=== PATIENT | female | born 1955 | race Caucasian/White ===

== ENCOUNTER 2019-12-30 01:35 | Outpatient (CLI) | payer OTHER, SELFPAY ==
[2019-12-30 18:04] LABS: SARS-CoV-2 RNA PCR Negative
== END 2019-12-30 01:36 | disposition home or self-care (01) ==
LOC: ANHCOVIDDT 01:35
PROVIDERS: PCP Internal Medicine; Visit Provider Internal Medicine Gastroenterology
DX: Z01.812 Encounter for preprocedural laboratory examination (principal); Z20.828 Contact with and (suspected) exposure to other viral communicable diseases
CPT/HCPCS: 87635; C9803; U0003

== ENCOUNTER 2020-01-03 01:30 | Day surgery (SDC) | payer OTHER, SELFPAY ==
[2019-12-27 14:43] VITALS: BMI 51.5
[2020-01-03 06:34] VITALS: BP 156/84; PULSE 85; RESP 17; TEMP 36.5; O2SAT 95; BMI 51.3
[2020-01-03] MEDS: LACTATED RINGERS 1,000 ML 150 ML IV CONT (06:44)
--- NOTE | 2020-01-03 07:04 | WPDANESEPPF ---
Anes - Initial Pre Proc Eval Procedure: Operation Date: 01/03/20 07:30 Proposed Procedures p Colonoscopy - Justin Pineda MD Date/Time: 01/03/20 07:04 Surgeon: Justin Pineda MD Pre Op Diagnosis: Occult GI bleeding Patient Data Age: 64 Gender: F Height: 5 ft 4 in Weight: 135.7 kg Last Vital Signs Temp 36.5 C 01/03/20 06:34 Pulse 85 01/03/20 06:34 Resp 17 01/03/20 06:34 BP 156/84 H 01/03/20 06:34 Pulse Ox 95 01/03/20 06:34 Allergies Allergy/AdvReac Type Severity Reaction Status Date / Time sulfamethizole Allergy Severe Itching Verified 01/03/20 06:29 sulfamethoxazole Allergy Severe Itching Verified 01/03/20 06:29 bacitracin Allergy Intermediate Redness of Verified 01/03/20 06:29 Skin polymyxin B Allergy Intermediate Redness of Verified 01/03/20 06:29 Skin trimethoprim Allergy Intermediate Unknown Verified 01/03/20 06:29 gramicidin D Allergy Mild RED/INFLAMM Verified 01/03/20 06:29 ED diclofenac AdvReac Intermediate Unknown Verified 01/03/20 06:29 BACITRACIN ZINC Allergy Mild RED/INFLAMM Uncoded 01/03/20 06:29 ED NEOMYCIN SULFATE Allergy Mild RED/INFLAMM Uncoded 01/03/20 06:29 ED POLYMYXIN B SULFATE Allergy Mild RED/INFLAMM Uncoded 01/03/20 06:29 ED Home Medications Medication Instructions Recorded Confirmed Type fluticasone propionate 50 1 spray NASAL DAILY #18.2 ml 04/12/19 01/03/20 Rx mcg/actuation nasal spray,suspension buprenorphine 8 mg-naloxone 2 mg 2 tablet SUBLINGUAL DAILY tablet 07/06/19 01/03/20 History sublingual tablet hydroxychloroquine 200 mg tablet 400 mg PO BID tablet 07/06/19 01/03/20 History leflunomide 20 mg tablet 20 mg PO DAILY tablet 07/06/19 01/03/20 History sulfasalazine 500 mg 0.5 gm PO BID tablet 07/06/19 01/03/20 History tablet,delayed release adalimumab 40 mg/0.8 mL 40 mg SUB-Q .q other week each 07/25/19 01/03/20 History subcutaneous syringe kit Synthroid 150 mcg tablet 150 mcg PO DAILY #90 tablet NS 10/16/19 01/03/20 Rx celecoxib 200 mg capsule 200 mg PO DAILY #90 cap 10/16/19 01/03/20 Rx gabapentin 300 mg capsule 300 mg PO BID 10/17/19 01/03/20 History amlodipine [Norvasc] 10 mg PO DAILY 12/27/19 01/03/20 History furosemide [Lasix] 40 mg PO QAM 12/27/19 01/03/20 History montelukast [Singulair] 10 mg PO DAILY 12/27/19 01/03/20 History valsartan-hydrochlorothiazide 1 tablet PO DAILY 12/27/19 01/03/20 History [Diovan HCT] Patient hx anesthesia problems: none Family hx anesthesia problems: none PMFSH Past Medical History Medical History Arthritis Arthritis of foot, degenerative Callus of foot Eye exam normal Flatfoot Hypertension Opioid dependence on agonist therapy Osteoporosis Skin cancer Spinal stenosis of lumbar region Vision abnormalities Surgical History Surgical History History of hip replacement Family History Family History Father Family history of osteoarthritis Family history of coronary artery disease Mother Familial primary pulmonary hypertension Family history of elevated blood lipids Other Diabetes mellitus Family history of arthritis Family history of cardiovascular disease Family history of gout Family history of malignant neoplasm of skin Hypertension Social History Social History Smoking packs per day: 0.5 Smoking cigarettes per day: 10.0 Years smoked: 40 Smoking pack-years: 20.00 Smoking status: Current every day smoker Tobacco type: cigarettes Second hand tobacco smoke exposure: No Alcohol intake: current Substance use type: does not use Living arrangements: with family Gender identity (if verbalized by the patient): Female Spiritual care concerns: No Anes - Eval Final PreProcedure Day of P
--- NOTE | 2020-01-03 07:42 | WPDGICN ---
Assessment and Plan Assessment and plan (1) Occult blood in stools: Code(s): R19.5 - Other fecal abnormalities Status: Acute Assessment and Plan: Occult blood noted in stool on routine screening exam plan is for screening colonoscopy to assess more thoroughly. Further recommendations will be given after endoscopy. (2) Class 3 severe obesity with serious comorbidity and body mass index (BMI) of 50.0 to 59.9 in adult: Code(s): E66.01 - Morbid (severe) obesity due to excess calories; Z68.43 - Body mass index [BMI] 50.0-59.9, adult Status: Acute GI Consult Note Consult date/time: 01/03/20 07:42 HPI: Shara Kerr is a 64 year old female Seen in evaluation at the request of Dr Grzegorz Girard. patient recently was found to have positive Hemoccult in a stool sample. Patient states her bowel habits are normal and regular. She denies abdominal pain. She has had no visible bleeding. Review of Systems Review of Systems: All systems reviewed & are unremarkable except as noted in HPI and below PMFSH Past Medical History Medical History Arthritis Arthritis of foot, degenerative Callus of foot Eye exam normal Flatfoot Hypertension Opioid dependence on agonist therapy Osteoporosis Skin cancer Spinal stenosis of lumbar region Vision abnormalities Surgical History Surgical History History of hip replacement Family History Family History Father Family history of osteoarthritis Family history of coronary artery disease Mother Familial primary pulmonary hypertension Family history of elevated blood lipids Other Diabetes mellitus Family history of arthritis Family history of cardiovascular disease Family history of gout Family history of malignant neoplasm of skin Hypertension Social History Social History Smoking packs per day: 0.5 Smoking cigarettes per day: 10.0 Years smoked: 40 Smoking pack-years: 20.00 Smoking status: Current every day smoker Tobacco type: cigarettes Second hand tobacco smoke exposure: No Alcohol intake: current Substance use type: does not use Living arrangements: with family Gender identity (if verbalized by the patient): Female Spiritual care concerns: No Meds Home Medications and Allergies Home Medications Medication Instructions Recorded Confirmed Type fluticasone propionate 50 1 spray NASAL DAILY #18.2 ml 04/12/19 01/03/20 Rx mcg/actuation nasal spray,suspension buprenorphine 8 mg-naloxone 2 mg 2 tablet SUBLINGUAL DAILY tablet 07/06/19 01/03/20 History sublingual tablet hydroxychloroquine 200 mg tablet 400 mg PO BID tablet 07/06/19 01/03/20 History leflunomide 20 mg tablet 20 mg PO DAILY tablet 07/06/19 01/03/20 History sulfasalazine 500 mg 0.5 gm PO BID tablet 07/06/19 01/03/20 History tablet,delayed release adalimumab 40 mg/0.8 mL 40 mg SUB-Q .q other week each 07/25/19 01/03/20 History subcutaneous syringe kit Synthroid 150 mcg tablet 150 mcg PO DAILY #90 tablet NS 10/16/19 01/03/20 Rx celecoxib 200 mg capsule 200 mg PO DAILY #90 cap 10/16/19 01/03/20 Rx gabapentin 300 mg capsule 300 mg PO BID 10/17/19 01/03/20 History amlodipine [Norvasc] 10 mg PO DAILY 12/27/19 01/03/20 History furosemide [Lasix] 40 mg PO QAM 12/27/19 01/03/20 History montelukast [Singulair] 10 mg PO DAILY 12/27/19 01/03/20 History valsartan-hydrochlorothiazide 1 tablet PO DAILY 12/27/19 01/03/20 History [Diovan HCT] Allergies Allergy/AdvReac Type Severity Reaction Status Date / Time sulfamethizole Allergy Severe Itching Verified 01/03/20 06:29 sulfamethoxazole Allergy Severe Itching Verified 01/03/20 06:29 bacitracin Allergy Intermediate Redness of Verified 01/03/20 06:29 Skin p
[2020-01-03 08:03] VITALS: BP 108/52; PULSE 77; RESP 16; O2SAT 95
[2020-01-03 08:13] VITALS: BP 94/54; PULSE 90; RESP 16; O2SAT 94
[2020-01-03 08:23] VITALS: BP 128/89; PULSE 85; RESP 21; O2SAT 97
== END 2020-01-03 08:38 | disposition home or self-care (01) ==
PROVIDERS: PCP Internal Medicine; Visit Provider Internal Medicine Gastroenterology
PROC: 0DJD8ZZ Inspection of Lower Intestinal Tract, Via Natural or Artificial Opening Endoscopic (ICD-10-PCS; CPT 45378; principal; 2020-01-03 07:30)
DX: R19.5 Other fecal abnormalities (principal); K64.8 Other hemorrhoids; E66.01 Morbid (severe) obesity due to excess calories; I10 Essential (primary) hypertension; M81.0 Age-related osteoporosis without current pathological fracture; M48.061 Spinal stenosis, lumbar region without neurogenic claudication; M19.079 Primary osteoarthritis, unspecified ankle and foot; M21.40 Flat foot [pes planus] (acquired), unspecified foot; H53.9 Unspecified visual disturbance; L84 Corns and callosities; F11.20 Opioid dependence, uncomplicated; F17.210 Nicotine dependence, cigarettes, uncomplicated; Z96.649 Presence of unspecified artificial hip joint
CPT/HCPCS: 45378; J2001; J2704; J7120

== ENCOUNTER 2020-05-03 11:35 | Outpatient (CLI) | payer OTHER, MEDICARE, SELFPAY | END 2020-05-03 11:36 | disposition home or self-care (01) | LOC: ANHCOVIDVC 11:35 | PROVIDERS: PCP Internal Medicine | DX: Z23 Encounter for immunization (principal) | CPT/HCPCS: 0001A; 91300 ==

== ENCOUNTER 2020-05-24 11:26 | Outpatient (CLI) | payer OTHER, MEDICARE, SELFPAY | END 2020-05-24 11:27 | disposition home or self-care (01) | LOC: ANHCOVIDVC 11:26 | PROVIDERS: PCP Internal Medicine | DX: Z23 Encounter for immunization (principal) | CPT/HCPCS: 0002A; 91300 ==

== ENCOUNTER 2020-11-21 12:03 | Outpatient (CLI) | payer OTHER, SELFPAY ==
--- NOTE | ~2020-11-21 | XR_ITS ---
EXAMINATION: XR lg joint inject/asp w image, XR lg joint inject/asp add DATE: 11/21/2020 13:54 INDICATION: Primary osteoarthritis of the bilateral shoulders presenting with pain TECHNIQUE: A time-out was performed to verify the patient's name, date of , and procedure to b e performed. The procedure including the risks, benefits, and alternatives was discussed with the pat ient. Risks discussed included bleeding and allergic reaction and infection. The patient understood t he risks and agreed to proceed. Attention was first turned to the right shoulder. The skin overlying the right glenohumeral joint was prepped and draped in usual sterile fashion. Anesthetic was adminis tered with 1% lidocaine subcutaneously. A 22 G needle was advanced under fluoroscopic guidance into the joint. Injection of 1 mL of Omnipaque 240 confirmed intra-articular position of the needle. Sub sequently, injectate consisting of 3.5 mL of a 4:3 mixture of 1% lidocaine: 10 mg/mL Kenalog for a to mihaela dosage of 15 mg Kenalog was instilled. Washout of contrast was seen confirming intra-articular ad ministration. The needle was removed and the entry site was cleaned and dressed. Attention was then turned to the left glenohumeral joint. The skin overlying the left glenohumeral bryan int was prepped and draped in usual sterile fashion. Anesthetic was administered with 1% lidocaine caputo bcutaneously. A 22 G needle was advanced under fluoroscopic guidance into the joint. Injection of 1 mL of Omnipaque 240 confirmed intra-articular position of the needle. Subsequently, injectate consi sting of 3.5 mL of a 4:3 mixture of 1% lidocaine: 10 mg/mL Kenalog for a total dosage of 15 mg Kenalo g was instilled. Washout of contrast was seen confirming intra-articular administration. The needle w as removed and the entry site was cleaned and dressed. There were no immediate complications. Fluoros copy exposure time for both procedures was 0.4 minutes. The total number of images was 3. Total DAP w as 6.172 mGycm^2 FINDINGS: Real-time fluoroscopy demonstrates the needle and contrast first in the right glenohumeral joint and subsequently a second needle and contrast in the left glenohumeral joint. Patient's pain in the left shoulder prior to procedure:10/01 and following the procedure: 06/01. Patient's pain in the l eft shoulder prior to procedure:06/01 and following the procedure: 04/03. IMPRESSION: 1. Successful left and right shoulder joint injections of local anesthetic and steroid with decrease in the patient's presenting pain. Reviewed, dictated and finalized at location A. IMPRESSION: 1. Successful left and right shoulder joint injections of local anesthetic and steroid with decrease in the patient's presenting pain.
== END 2020-11-21 12:04 | disposition home or self-care (01) ==
PROVIDERS: PCP Family Medicine; Visit Provider Orthopaedic Surgery
DX: M19.011 Primary osteoarthritis, right shoulder (principal); M19.012 Primary osteoarthritis, left shoulder
CPT/HCPCS: 20610; 77002; J3301; Q9966

== ENCOUNTER 2021-01-01 06:59 | Emergency (ER) | payer OTHER, SELFPAY ==
[2021-01-01 07:25] VITALS: BP 187/89; PULSE 100; RESP 18; TEMP 36.8; O2SAT 100
[2021-01-01 07:37] VITALS: BP 187/89; PULSE 100; RESP 18; TEMP 36.8; O2SAT 100
[2021-01-01 08:03] LABS: Basophils Absolute Auto 0.1 K/mm3 (0.0-0.1); Basophils Percent Auto 0.8 % (0.2-1.2); Eosinophils Absolute Auto 0.1 K/mm3 (0-0.3); Eosinophils Percent Auto 0.8 % (0-4.4); Hematocrit 44.5 % (37.0-47.0); Hemoglobin 14.5 g/dL (12.0-15.0); Immature Granulocyte Absolute 0.02 K/mm3 (0.00-0.031); Immature Granulocyte Percent A 0.3 % (0-0.5); Lymphocytes Absolute Auto 1.09 K/mm3 (0.9-3.2); Lymphocytes Percent Auto 16.5 % (18.3-44.2); Mean Corpuscular HGB Conc 32.6 g/dl (32-36); Mean Corpuscular Hemoglobin 31.8 pg (26-34); Mean Corpuscular Volume 97.6 fl (80-100); Mean Platelet Volume 9.4 fl (7.4-10.4); Monocytes Absolute Auto 0.6 K/mm3 (0.1-0.6); Monocytes Percent Auto 8.8 % (2.6-8.5); Neutrophils Absolute Auto 4.8 K/mm3 (1.3-6.7); Neutrophils Percent Auto 72.8 % (45.5-73.1); Platelet Count Result 229 k/mm3 (150-375); Red Blood Count 4.56 M/mm3 (4.2-5.4); Red Cell Distribution Width 13.7 % (11.5-14.5); White Blood Count 6.6 K/mm3 (4.5-10.0)
[2021-01-01 08:14] LABS: Sodium 139 mmol/L (137-145)
--- NOTE | 2021-01-01 08:18 | PC.NURSE ---
Pt states she has taken tylenol and iburprofen before with no issues, spoke with pharmacy [facility] and verified will monitor pt for reaction
[2021-01-01 08:25] LABS: Alanine Aminotransferase 31 U/L (4-35); Albumin Level 4.7 g/dL (3.5-5.1); Alkaline Phosphatase 80 U/L (38-126); Anion Gap 10 mmol/L (8-16); Aspartate Amino Transferase 28 U/L (14-36); Bilirubin,Total 0.5 mg/dL (0.2-1.3); Blood Urea Nitrogen 17 mg/dL (7-17); Calcium 9.7 mg/dL (8.4-10.2); Carbon Dioxide 31 mmol/L (22-30); Chloride 98 mmol/L (98-107); Estimated CRCL calculation 100 ml/min; Estimated Glomerular Filt Rate > 60; Glucose 132 mg/dL (65-110); Potassium 3.9 mmol/L (3.4-5.0)
[2021-01-01] MEDS: SODIUM CHLORIDE 0.9% IV 1,000 ML 999 ML IV CONT (08:41)
[2021-01-01] MEDS: KETOROLAC 15 MG/ML VIAL (*BKC) IV PUSH (08:41)
[2021-01-01] MEDS: HYDROmorphone HCL INJ (*CRX) 1 MG/ML SYR IV PUSH ×2 (09:38→11:19)
[2021-01-01 09:47] LABS: Erythrocyte Sedimentation Rate 16 mm/hr (0-20)
[2021-01-01 10:27] LABS: Add Urine Microscopic? YES; Appearance Urine Clear (Clear); Bacteria Urine Trace /hpf; Bilirubin Urine Negative (Negative); Blood Urine 1+ (Negative); Color Urine Yellow (Yellow); Glucose Urine UA Negative (Negative); Ketones Urine Negative (Negative); Leukocyte Esterase Ur Negative LEU/UL (Negative); Mucus Urine Rare /lpf; Nitrate Urine Negative (Negative); Protein Urine Negative (Negative); RBC Urine 0-2 /hpf (0-2); Specific Grav Ur 1.009 (1.001-1.035); Squamous Epithelial Cell Urine Few /hpf (Few); Urobilinogen Urine Negative mg/dL (<2.0); WBC Urine 0-3 /hpf
--- NOTE | 2021-01-01 10:32 | ED.BACK ---
HPI - Back Pain/Injury General Chief Complaint: Back Pain/Injury Stated Complaint: low back nerve pain Time Seen by Provider: 01/01/21 07:25 Source: patient History of Present Illness HPI Narrative: Patient presents with low back pain. Patient reports a history of chronic low back pain and had a CT myelogram performed on Wednesday since then she had an increase in her low back pain. Pain is achy, constant, nothing makes it worse, no radiation. She talked to her providers who did the procedure recommended monitoring her symptoms she did but her pain persisted. She called her regular doctor on Wednesday as well as her spine surgeon and reporting she was in severe pain. Given the severity of her pain she was referred to the ER for evaluation. She denies any numbness or tingling. Reports she has a hard time stooling. Related Data Home Medications Medication Instructions Recorded Confirmed buprenorphine 8 mg-naloxone 2 mg 2 tablet SUBLINGUAL DAILY tablet 07/06/19 11/19/20 sublingual tablet hydroxychloroquine 200 mg tablet 400 mg PO BID tablet 07/06/19 11/19/20 leflunomide 20 mg tablet 20 mg PO DAILY tablet 07/06/19 11/19/20 sulfasalazine 500 mg 0.5 gm PO BID tablet 07/06/19 11/19/20 tablet,delayed release B-complex with vitamin C 1 cap PO DAILY 07/09/20 11/19/20 cholecalciferol (vitamin D3) 50 50 mcg PO DAILY 07/09/20 11/19/20 mcg (2,000 unit) tablet omega-3 fatty acids 1,000 mg 1,000 mg PO DAILY 07/09/20 11/19/20 capsule Allergies Allergy/AdvReac Type Severity Reaction Status Date / Time sulfamethizole Allergy Severe Itching Verified 10/21/20 10:04 sulfamethoxazole Allergy Severe Itching Verified 10/21/20 10:04 bacitracin Allergy Intermediate Redness of Verified 10/21/20 10:04 Skin polymyxin B Allergy Intermediate Redness of Verified 10/21/20 10:04 Skin trimethoprim Allergy Intermediate Unknown Verified 10/21/20 10:04 gramicidin D Allergy Mild RED/INFLAMM Verified 10/21/20 10:04 ED diclofenac AdvReac Intermediate Unknown Verified 10/21/20 10:04 BACITRACIN ZINC Allergy Mild RED/INFLAMM Uncoded 01/23/20 11:46 ED NEOMYCIN SULFATE Allergy Mild RED/INFLAMM Uncoded 01/23/20 11:46 ED POLYMYXIN B SULFATE Allergy Mild RED/INFLAMM Uncoded 01/23/20 11:46 ED Review of Systems Review of Systems: CONSTITUTIONAL: Denies fever, chills, or sweats. EYES: Denies visual changes, redness, or discharge. ENT: Denies rhinorrhea, congestion, sore throat, or otalgia. CARDIOVASCULAR: Denies chest pain, palpitations, or edema. RESPIRATORY: Denies cough or dyspnea. GASTROINTESTINAL: Denies abdominal pain, nausea, vomiting, or diarrhea. GENITOURINARY: Denies dysuria or hematuria. SKIN: Denies rash or itching. MUSCULOSKELETAL: Denies joint pain, or myalgia. NEUROLOGIC: Denies headache, numbness, dizziness, or weakness. PSYCHIATRIC: Denies anxiety or depression. All systems reviewed & are unremarkable except as noted in HPI and below PMFSH Past Medical History Medical History Arthritis Arthritis of foot, degenerative Callus of foot Eye exam normal Flatfoot Glenohumeral arthritis Hypertension Opioid dependence on agonist therapy Osteoporosis Skin cancer Spinal stenosis of lumbar region Vision abnormalities Surgical History Surgical History History of colonoscopy 01/03/2020 Dr. Pineda repeat 01/02/2030 History of hip replacement Status post right hip replacement Family History Family History Father Family history of osteoarthritis Family history of coronary artery disease Mother Familial primary pulmonary hypertension Family history of elevated blood lipids Other Diabetes mellitus Family history of arthritis Family history of cardiovascular disease Family history of gout Family history of malignant neoplasm of skin Hypertension
--- NOTE | 2021-01-01 12:20 | PC.NURSE ---
Pt denied vital signs being taken and stated she is ready to leave now, pt ambulated to the wheel chair and picked up by , no acute distress at this time, educated pt on diagnosis and to follow up with PCP, pt verbalizes understanding
== END 2021-01-01 12:20 | disposition home or self-care (01) ==
PROVIDERS: Emergency Provider Emergency Medicine; PCP Family Medicine
DX: M54.40 Lumbago with sciatica, unspecified side (principal); M19.90 Unspecified osteoarthritis, unspecified site; I10 Essential (primary) hypertension
CPT/HCPCS: 36415; 80053; 81001; 85025; 85652; 96361; 96374; 96375; 99284; J1170; J1885; J7030

== ENCOUNTER 2021-07-10 12:02 | Inpatient (IN) | payer OTHER, SELFPAY ==
[2021-07-10] VITALS (15 sets, daily range): BP systolic 118–134; BP diastolic 74–96; PULSE 97–133; RESP 20–28; TEMP 36.6–37.7; O2SAT 87–98; BMI 54.1
--- NOTE | ~2021-07-10 | CT_ITS ---
EXAMINATION: CTA chest PE protocol DATE: 07/10/2021 12:51 INDICATION: Chest pain, shortness of breath and left-sided pleuritic chest pain. TECHNIQUE: Computed tomography (CT) pulmonary angiogram of the chest was performed with 100 mL Omnipa que-350 intravenous contrast. Additional 3D reconstructions utilizing coronal maximum intensity proje ction (MIP) were performed. Automated exposure control and iterative reconstruction technique were em ployed. The dose-length product was 1026.79 mGy-cm. COMPARISON: Chest CT dated 09/15/2017 FINDINGS: Adequate but suboptimal contrast opacification of the pulmonary arteries. There is mild streak artifa ct from dense contrast in the superior vena cava and right atrium. No significant motion artifact. No pulmonary embolism. Consolidation throughout the majority of the left lower lobe without associated volume loss and with groundglass opacities at the periphery of the consolidation most likely related to pneumonia. Indeterminate 11 mm infrahilar nodule in the right lower lobe. Consolidation groundglas s opacities in the right middle lobe but with associated volume loss and favor atelectasis over pneum onia. No pleural effusion. Calcified nodules in the superior segment of the left lower lobe and calci fied left hilar lymph nodes and a few splenic calcific lesions, all consistent with old granulomatous disease. Heart size is normal. Atherosclerotic coronary artery calcific location. No pericardial eff usion. Thoracic aorta is normal in caliber with no dissection. No pathologically enlarged thoracic ly mphadenopathy. Diffuse hepatic steatosis. There is focal stranding about the left adrenal gland which can be seen with adrenal congestion and occasionally as a precursor to adrenal hemorrhage. No high a ttenuation hematoma or active extravasation appreciated. 10 mm low density left adrenal nodule consis tent with an adenoma. Mild thoracic spondylosis. IMPRESSION: 1. No pulmonary embolism. 2. Extensive left lower lobe consolidation consistent with pneumonia. 3. Right middle lobe opacities with associated volume loss and favor atelectasis over pneumonia. 4. Indeterminate 11 mm right infrahilar nodule. Recommend 3 month follow-up chest CT. 5. Nonspecific stranding about the left adrenal gland which can be seen with adrenal congestion or is a precursor to adrenal hemorrhage with no higher attenuation hematoma or active extravasation apprec iated. 6. Diffuse hepatic steatosis. Reviewed, dictated and finalized at location A. IMPRESSION: 1. No pulmonary embolism. 2. Extensive left lower lobe consolidation consistent with pneumonia. 3. Right middle lobe opacities with associated volume loss and favor atelectasi s over pneumonia. 4. Indeterminate 11 mm right infrahilar nodule. Recommend 3 month follow-up [facility] CT. 5. Nonspecific stranding about the left adrenal gland which can be seen with ad renal congestion or is a precursor to adrenal hemorrhage with no higher attenua tion hematoma or active extravasation appreciated. 6. Diffuse hepatic steatosis.
--- NOTE | ~2021-07-10 | XR_ITS ---
EXAMINATION: XR chest 1V portable DATE: 07/13/2021 09:11 INDICATION: Pneumonia. TECHNIQUE: frontal view of the chest was obtained. COMPARISON: Chest radiograph dated 07/12/2021 FINDINGS: Persistent mild airspace opacities throughout the right lung and in the left midlung zone. Improved a eration in a region of previously more dense retrocardiac consolidation consistent with improving lef t lower lobe pneumonia. No pleural effusion or pneumothorax The cardiomediastinal silhouette is pascual l. IMPRESSION: 1. Improving left lower lobe pneumonia. 2. No change in more diffuse but less dense scattered opacities throughout the right lung and in the left midlung zone which could represent atelectasis, pneumonia or pulmonary edema. Reviewed, dictated and finalized at location A. IMPRESSION: 1. Improving left lower lobe pneumonia. 2. No change in more diffuse but less dense scattered opacities throughout the right lung and in the left midlung zone which could represent atelectasis, pneu monia or pulmonary edema.
--- NOTE | ~2021-07-10 | XR_ITS ---
EXAMINATION: XR chest 1V portable DATE: 07/12/2021 05:53 INDICATION: Shortness of breath TECHNIQUE: frontal view of the chest was obtained. COMPARISON: Chest radiograph dated 09/03/[address] dated 07/10/2021 FINDINGS: Opacities in the bilateral lower lung zones consistent with left lower lobe pneumonia and right middl e lobe atelectasis versus less likely pneumonia based upon appearance on prior CT. New opacities in t he right upper lung zone centrally consistent with either atelectasis or pneumonia. Small left pleura l effusion. No pneumothorax or right-sided pleural effusion. The cardiomediastinal silhouette is norm al. IMPRESSION: 1. Bilateral airspace opacities likely combination of atelectasis and pneumonia with increase in the right upper lung zone. Reviewed, dictated and finalized at location A.
--- NOTE | 2021-07-10 12:01 | ECG_ITS ---
Measurements Intervals [place] Rate: 0 P: IA: 0 QRS: QRSD: 0 T: QT: 0 QTc: 0 Interpretive Statements SINUS TACHYCARDIA, POSSIBLE ATRIAL FLUTTER RIGHT AXIS DEVIATION RIGHT BUNDLE BRANCH BLOCK ST-T WAVE ABNORMALITY IN ANTEROLAT/INF LEADS- CONSIDER ISCHEMIA BASELINE ARTIFACT- I, II, III, AVR, AVL, AVF, V1-V3 ABNORMAL ECG Electronically Signed On 07-10-2021 15:28:42 CDT by Agustin Patrick D.O.
[2021-07-10 12:17] LABS: Hematocrit 42.8 % (37.0-47.0); Hemoglobin 13.5 g/dL (12.0-15.0); Mean Corpuscular HGB Conc 31.5 g/dl (32-36); Mean Corpuscular Hemoglobin 30.5 pg (26-34); Mean Corpuscular Volume 96.8 fl (80-100); Mean Platelet Volume 9.7 fl (7.4-10.4); Platelet Count Result 163 k/mm3 (150-375); Red Blood Count 4.42 M/mm3 (4.2-5.4); Red Cell Distribution Width 13.7 % (11.5-14.5); White Blood Count 16.4 K/mm3 (4.5-10.0)
[2021-07-10 12:28] LABS: Alanine Aminotransferase 23 U/L (6-35); Albumin Level 3.7 g/dL (3.5-5.1); Alkaline Phosphatase 58 U/L (38-126); Anion Gap 7 mmol/L (8-16); Aspartate Amino Transferase 24 U/L (14-36); Bilirubin,Total 1.1 mg/dL (0.2-1.3); Blood Urea Nitrogen 18 mg/dL (7-17); Calcium 8.5 mg/dL (8.4-10.2); Carbon Dioxide 27 mmol/L (22-30); Chloride 103 mmol/L (98-107); Cholesterol 121 mg/dL (0-200); Estimated CRCL calculation 101 ml/min; Estimated Glomerular Filt Rate > 60; Glucose 128 mg/dL (65-110); HDL Direct 40 mg/dL; Sodium 137 mmol/L (137-145); Triglycerides 48 mg/dL (<150)
[2021-07-10 12:29] LABS: Band Neutrophils Percent 22 % (0-6); Basophils Absolute Manual 0.16 K/mm3 (0.0-0.1); Basophils Percent Manual 1 % (0-1); Eosinophils Absolute Manual 0.16 K/mm3 (0.02-0.5); Eosinophils Percent Manual 1 % (0-4); Lymphocytes Absolute Manual 0.49 K/mm3 (1.1-4.5); Metamyelocytes Percent 2 %; Monocytes Absolute Manual 0.98 K/mm3 (0.1-0.90); Monocytes Percent Manual 6 % (3-9); Neutrophils Absolute Manual 14.26 K/mm3 (1.7-7.2); Neutrophils Percent Manual 65 % (46-73); Platelet Estimate Adequate (Adequate); Total Cells Counted 100
[2021-07-10 12:32] LABS: Partial Thromboplastin Time 30.9 SECONDS (22.3-36.8)
[2021-07-10 12:37] LABS: INR 1.2
[2021-07-10 12:39] LABS: LDL Cholesterol Direct 52 mg/dL
[2021-07-10 12:42] LABS: Troponin I 0.018 ng/mL (0.000-0.034)
[2021-07-10 13:10] LABS: Alveolar/Arterial O2 Gradient 187.7 mmHg; Base Excess ABG 1.9 mEq/l (+/-2.0); HCO3 ABG 25.5 mEq/l (22.0-26.0); Oxygen Saturation ABG 90.4 % (95.0-100.0); PCO2 ABG 36.9 mmHg (35.0-45.0); PO2 ABG 55.1 mmHg (80.0-100.0); Total Hemoglobin 13.6 g/dL (12.0-18.0); pH ABG 7.458 (7.350-7.450)
[2021-07-10 13:11] LABS: PO2 FiO2 Ratio Arterial Blood 1.38 %
[2021-07-10 13:13] LABS: Modified Allen's Test Pass; Site Drawn LEFT RADIAL
[2021-07-10 13:14] LABS: Device NASAL CANNULA
[2021-07-10 13:15] LABS: Fractional Inspired Oxygen 40 %; Oxygen Content ABG 16.6 %vol (16.0-22.0)
[2021-07-10 13:58] LABS: SARS-CoV-2 RNA PCR Negative
[2021-07-10 14:05] LABS: Lactic Acid Reflex 1.5 mmol/L (0.7-2.0)
[2021-07-10] MEDS: SODIUM CHLORIDE 0.9% IV 1,000 ML 999 ML IV CONT ×2 (14:09→15:50)
[2021-07-10] MEDS: ACETAMINOPHEN 500 MG TABLET 1000 MG PO (14:11)
--- NOTE | 2021-07-10 14:14 | ED.CHESTPAIN ---
HPI - Chest Pain General Chief Complaint: Chest Pain Stated Complaint: STEMI Time Seen by Provider: 07/10/21 12:10 Source: patient History of Present Illness HPI narrative: Patient presents with shortness of breath and chest pain. Reports she had shortness of breath since yesterday associated with fever today she was having left-sided back pain which was really severe she was concerned so called EMS. EMS performed an EKG there was concern for tachycardia and ST changes they called a STEMI in route. Patient reported her pain resolved with oxygen and aspirin. Her pain described as a sharp sensation worse with deep inspiration and moving her torso, started in her left chest and radiated to her left back. She denies prior history of cardiac disease or lung disease. Related Data Home Medications Medication Instructions Recorded Confirmed buprenorphine 8 mg-naloxone 2 mg 1 tablet SUBLINGUAL BID tablet 07/06/19 07/10/21 sublingual tablet hydroxychloroquine 200 mg tablet 200 mg PO BID tablet 07/06/19 07/10/21 leflunomide 20 mg tablet 20 mg PO DAILY tablet 07/06/19 07/10/21 sulfasalazine 500 mg 0.5 gm PO BID tablet 07/06/19 07/10/21 tablet,delayed release B-complex with vitamin C 1 cap PO DAILY 07/09/20 07/10/21 cholecalciferol (vitamin D3) 50 50 mcg PO DAILY 07/09/20 07/10/21 mcg (2,000 unit) tablet omega-3 fatty acids 1,000 mg 1,000 mg PO DAILY 07/09/20 07/10/21 capsule amlodipine 10 mg PO DAILY 07/10/21 07/10/21 celecoxib 200 mg PO DAILY 07/10/21 07/10/21 furosemide 40 mg PO DAILY 07/10/21 07/10/21 gabapentin 300 mg PO TID 07/10/21 07/10/21 levothyroxine [Synthroid] 150 mcg PO DAILY 07/10/21 07/10/21 montelukast 10 mg PO DAILY 07/10/21 07/10/21 valsartan-hydrochlorothiazide 1 tablet PO DAILY 07/10/21 07/10/21 Allergies Allergy/AdvReac Type Severity Reaction Status Date / Time sulfamethizole Allergy Severe Itching Verified 07/10/21 12:17 sulfamethoxazole Allergy Severe Itching Verified 07/10/21 12:17 bacitracin Allergy Intermediate Redness of Verified 07/10/21 12:17 Skin polymyxin B Allergy Intermediate Redness of Verified 07/10/21 12:17 Skin trimethoprim Allergy Intermediate Unknown Verified 07/10/21 12:17 gramicidin D Allergy Mild RED/INFLAMM Verified 07/10/21 12:17 ED diclofenac AdvReac Intermediate Unknown Verified 07/10/21 12:17 BACITRACIN ZINC Allergy Mild RED/INFLAMM Uncoded 07/10/21 12:17 ED NEOMYCIN SULFATE Allergy Mild RED/INFLAMM Uncoded 07/10/21 12:17 ED POLYMYXIN B SULFATE Allergy Mild RED/INFLAMM Uncoded 07/10/21 12:17 ED Review of Systems Review of Systems: CONSTITUTIONAL: Denies chills, or sweats. EYES: Denies visual changes, redness, or discharge. ENT: Denies rhinorrhea, congestion, sore throat, or otalgia. CARDIOVASCULAR: Denies palpitations, or edema. RESPIRATORY: Denies cough GASTROINTESTINAL: Denies abdominal pain, nausea, vomiting, or diarrhea. GENITOURINARY: Denies dysuria or hematuria. SKIN: Denies rash or itching. MUSCULOSKELETAL: Denies back pain, joint pain, or myalgia. NEUROLOGIC: Denies headache, numbness, dizziness, or weakness. PSYCHIATRIC: Denies anxiety or depression. All systems reviewed & are unremarkable except as noted in HPI and below PMFSH Past Medical History Medical History Arthritis Arthritis of foot, degenerative Callus of foot Eye exam normal Flatfoot Glenohumeral arthritis Hypertension Opioid dependence on agonist therapy Osteoporosis Skin cancer Spinal stenosis of lumbar region Vision abnormalities Surgical History Surgical History History of colonoscopy 01/03/2020 Dr. Pineda repeat 01/02/2030 History of hip replacement Status post right hip replacement Family History Family History Father Family history of osteoarthritis Family history of coronary artery
--- NOTE | 2021-07-10 14:38 | PM.IMHP ---
H&P: HPI History of Present Illness Date/Time: 07/10/21 14:38 Patient is a 65-year-old female with a past medical history of hypertension, opioid dependence on agonist therapy, rheumatoid arthritis and morbid obesity. She presented to the emergency department complaints of shortness of breath since yesterday. She has associated fevers and diaphoresis as well as left-sided back pain which is severely in pain. She was prompted to call the EMS. Upon EMS arrival they performed an EKG which was concerned for tachycardia ST changes they called a STEMI in route. Patient reported her pain resolved with oxygen aspirin. Patient reported with deep inspiration she developed sharp sensation and pain. She denies any prior history of cardiac disease or lung disease. Patient denies a history of BERNABE. Upon arrival to the emergency department cardiology was there to evaluate the patient for possible STEMI however they reported the patient does not have significant ST changes and did not need cardiac catheterization or cardiology intervention. Patient workup continue with labs and imaging in the emergency department she was found to have a significant leukocytosis of 16.4 and hemoglobin 13.5, hematocrit 42.8 and platelet 163. Potassium 3.0, sodium 137, chloride 103, BUN 18 and creatinine is 0.7. Glucose was mildly elevated at 128. Patient denies any history of diabetes mellitus. Normal LFTs and a negative troponin. COVID swab was negative. CT of the chest was performed and revealed for a large consolidation in the left lower lobe. Patient was treated with oxygen as her SpO2 upon arrival was in the 80s and required 15 L high-flow nasal cannula and she was administered azithromycin and Rocephin in the emergency department. Blood cultures and sputum culture was obtained in the emergency department. Vital signs remained stable during that time. ABG was performed which revealed a pH of 7.458, pCO2 36.9, PO2 55.1 and a bicarb of 25.5. Patient required 15 L nasal cannula during the time of ABG. Patient also has a indeterminate 11 mm right and for all hilar nodule with recommendation of follow-up in 3 months. Patient does have a history of tobacco dependence in reports recently quitting within the last 6 months although she has had a cigarette from time to time. The EKG obtained revealed regular tachycardia with a heart rate in the 130s with nonspecific ST and T-wave changes consistent with a strain pattern. QTC prolongation as well as a wide QRS might represent a right bundle branch block. Patient is being admitted further antibiotics, oxygen therapy, and cardiac monitoring. Admit to IMU Chief Complaint: Shortness of breath Review of Systems Review of Systems: All systems reviewed & are unremarkable except as noted in HPI and below PMFSH Past Medical History Medical History Arthritis Arthritis of foot, degenerative Callus of foot Eye exam normal Flatfoot Glenohumeral arthritis Hypertension Opioid dependence on agonist therapy Osteoporosis Skin cancer Spinal stenosis of lumbar region Vision abnormalities Surgical History Surgical History History of colonoscopy 01/03/2020 Dr. Pineda repeat 01/02/2030 History of hip replacement Status post right hip replacement Family History Family History Father Family history of osteoarthritis Family history of coronary artery disease Mother Familial primary pulmonary hypertension Family history of elevated blood lipids Other Diabetes mellitus Family history of arthritis Family history of cardiovascular disease Family history of gout Family history of malignant neoplasm of skin Hypertension Social History Social History Smoking packs per day: 0.5 Smoking cigarettes per day: 10.0
--- NOTE | 2021-07-10 14:51 | PC.NURSE ---
patient aware to have bring in suboxone bottles
[2021-07-10] MEDS: POTASSIUM CHLORIDE 20 MEQ TABLET 40 MEQ PO (16:01)
--- NOTE | 2021-07-10 16:02 | PC.NURSE ---
patient is very uncooperative regarding pulse ox and cardiac monitoring. verbally explained to patient that she has pneumonia and has to be monitored. she continues to take off leads. assisted patient up to chair d/t c/o being in this bed for 4 hours, it is ridiculous
[2021-07-10 16:12] LABS: Troponin I 0.017 ng/mL (0.000-0.034)
[2021-07-10] MEDS: methylPREDNISolone SOD SUCC 125 MG VIAL 40 MG IV PUSH ×2 (16:27→21:25)
--- NOTE | 2021-07-10 16:39 | PC.NURSE ---
patient sitting in chair falling asleep. woke patient up and suggested she get back into bed as she could fall. patient refused and continues to sit in chair
--- NOTE | 2021-07-10 17:34 | PC.NURSE ---
patient transported to IMU with vanco still infusing
[2021-07-10 17:51] LABS: Hemoglobin A1C 5.4 % (<5.7)
[2021-07-10] MEDS: SODIUM CHLORIDE 0.9% IV 1,000 ML 125 ML IV CONT (18:44)
[2021-07-10 18:52] LABS: Troponin I 0.015 ng/mL (0.000-0.034)
--- NOTE | 2021-07-10 19:02 | ADMGEN ---
Addendum entered by Maeve Pacheco RN 07/10/21 20:00: pt sitting up in recliner- unable to rest in a bed Original Note: This patient, Shara Kerr, was admitted to IMU Room 204-01 @ 1735. O2 HIGH FLOW AT 15L/ Patient/family oriented to hospital policies and general routines including ID bracelet, bed and alarms, visiting hours, pain management, procedures, bathroom and other care routines, personal items, smoking policy, room service/diet, and visiting hours. Information on how to activate the Rapid Response Team has been discussed. Patient/Family are encouraged to report perceived risks to care and to ask questions if they do not understand what they are told or what they should do.
[2021-07-10] MEDS: IPRATROPIUM BR 0.02% INH SOLN 0.5 MG/2.5 ML VIAL INHALATION (19:44)
--- NOTE | 2021-07-10 19:52 | PCRCNOTE ---
RT initiated AIRVO 60L/85% due to pt not being able to hold saturations above 90% on 15L HFNC and 15L non-rebreather.
--- NOTE | 2021-07-10 19:54 | PCRCNOTE ---
Apnea link study to be done on a different night due to pts increased 02 needs.
--- NOTE | 2021-07-10 19:56 | PC.NURSE ---
1849- Pt spo2 83% on 15l/HF cannula- 100% NRB mask placed on - spo2 88%-RR @ 28 labored --called RT- RT to start pt on AirVo
[2021-07-10] MEDS: guaiFENesin 12 HR 600 MG TABCR PO (21:27)
[2021-07-10] MEDS: MELATONIN 5 MG TABLET PO (21:33)
[2021-07-10] MEDS: ACETAMINOPHEN 325 MG TABLET 650 MG PO (21:48)
[2021-07-11] VITALS (30 sets, daily range): BP systolic 81–138; BP diastolic 60–78; PULSE 84–122; RESP 16–27; TEMP 36–36.4; O2SAT 94–100
--- NOTE | 2021-07-11 | ECHO_ITS ---
Patient Info Name: Shara Kerr Age: 65 years : 1955 Gender: Female Ht: 64 in Wt: 316 lbs BSA: 2.64 m2 HR: 97 bpm BP: 108 / 74 mmHg Technical Quality: Poor Exam Date: 07/11/2021 9:55 AM Exam Location: [facility] Pulmonary Patient Status: Inpatient Admit Date: 07/11/2021 Staff Ordering Physician: Tracey Frias APRN Water Quality Specialist: Alonzo Cardenas, ANGELO, RT Attending Provider: Baldomero Patterson MD Referring Physician: Rodriguez AQUINO; Exam Type: CA echo doppler color flow Study Info Indications R07.9 - Chest pain, unspecified Complete two-dimensional, color flow and Doppler transthoracic echocardiogram is performed. Summary 1. Complete two-dimensional, color flow and Doppler transthoracic echocardiogram is performed. 2. Technically suboptimal study due to poor sonographic images. Patient refused definity contrast. 3. Left ventricular chamber dimension is normal. 4. Left ventricular systolic function is normal, estimated at 60-65%. 5. There is mildly increased left ventricular wall thickness. 6. The left ventricular diastolic function is grade I diastolic dysfunction. 7. E/e' 8 is minimally elevated. 8. There is mild aortic valve sclerosis. 9. Mild pulmonary hypertension, estimated pulmonary arterial systolic pressure is 44 mmHg. 10. Dilated inferior vena cava with >50% collapse upon inspiration consistent with elevated right atrial pressure, 10 mmHg. Left Ventricle E/e' 8 is minimally elevated. Technically suboptimal study due to poor sonographic images. Patient refused definity contrast. Left ventricular chamber dimension is normal. Left ventricular systolic function is normal, estimated at 60-65%. There is mildly increased left ventricular wall thickness. The left ventricular diastolic function is grade I diastolic dysfunction. Right Ventricle Right ventricular chamber dimension is not well visualized. Left Atria Left atrial chamber dimension is normal. Right Atria Right atrial chamber dimension is not well visualized. Aortic Valve The aortic valve is not well visualized. Cannot determine number of aortic valve leaflets. There is mild aortic valve sclerosis. There is no aortic valve stenosis. There is no aortic valve regurgitation. Pulmonic Valve The pulmonic valve is not well visualized. Mitral Valve There is no mitral valve stenosis. There is no mitral valve regurgitation. Tricuspid Valve The tricuspid valve leaflets are not well visualized. There is no tricuspid valve regurgitation. Mild pulmonary hypertension, estimated pulmonary arterial systolic pressure is 44 mmHg. Pericardium/Pleural There is no pericardial effusion. Inferior Vena Cava Dilated inferior vena cava with >50% collapse upon inspiration consistent with elevated right atrial pressure, 10 mmHg. Aorta The aortic root size at the sinus of Valsalva is normal. Left Ventricular Outflow Tract Name Value Normal LVOT 2D LVOT Diameter 2.1 cm LVOT Doppler LVOT Peak Gradient 3 mmHg LVOT Mean Gradient 1 mmHg LVOT VTI 1
[2021-07-11 00:03] LABS: Glucose Point of Care 161 mg/dl (65-105)
[2021-07-11] MEDS: IPRATROPIUM BR 0.02% INH SOLN 0.5 MG/2.5 ML VIAL INHALATION ×4 (01:43→20:25)
[2021-07-11] MEDS: SODIUM CHLORIDE 0.9% IV 1,000 ML 125 ML IV CONT ×2 (03:22→17:36)
[2021-07-11 05:06] LABS: Hematocrit 42.5 % (37.0-47.0); Hemoglobin 13.5 g/dL (12.0-15.0); Mean Corpuscular HGB Conc 31.8 g/dl (32-36); Mean Corpuscular Volume 97.5 fl (80-100); Mean Platelet Volume 10.3 fl (7.4-10.4); Platelet Count Result 156 k/mm3 (150-375); Red Blood Count 4.36 M/mm3 (4.2-5.4); Red Cell Distribution Width 13.7 % (11.5-14.5); White Blood Count 15.9 K/mm3 (4.5-10.0)
[2021-07-11 05:09] LABS: Alveolar/Arterial O2 Gradient 393.8 mmHg; Base Excess ABG -0.5 mEq/l (+/-2.0); Carboxyhemoglobin 1.2 % THb (0-2.0); Fractional Inspired Oxygen 75 %; HCO3 ABG 25.1 mEq/l (22.0-26.0); Methemoglobin ABG 0.2 %THb (0-1.5); Oxygen Content ABG 17.3 %vol (16.0-22.0); Oxygen Saturation ABG 96.8 % (95.0-100.0); Oxyhemoglobin 94.8 % THb (90.0-100.0); PCO2 ABG 45.1 mmHg (35.0-45.0); PO2 FiO2 Ratio Arterial Blood 1.24 %; Reduced Hemoglobin 3.8 %THb (0-5.0); Total Hemoglobin 12.9 g/dL (12.0-18.0); pH ABG 7.364 (7.350-7.450)
[2021-07-11 05:10] LABS: Device HIGH FLOW THERAPY; Modified Allen's Test Pass; Site Drawn RIGHT RADIAL
[2021-07-11 05:19] LABS: Lactic Acid Reflex 1.4 mmol/L (0.7-2.0)
[2021-07-11 05:35] LABS: Alanine Aminotransferase 22 U/L (6-35); Albumin Level 3.4 g/dL (3.5-5.1); Alkaline Phosphatase 37 U/L (38-126); Anion Gap 8 mmol/L (8-16); Aspartate Amino Transferase 24 U/L (14-36); Bilirubin,Total 0.6 mg/dL (0.2-1.3); Blood Urea Nitrogen 16 mg/dL (7-17); Calcium 7.8 mg/dL (8.4-10.2); Carbon Dioxide 22 mmol/L (22-30); Chloride 104 mmol/L (98-107); Estimated CRCL calculation 116 ml/min; Estimated Glomerular Filt Rate > 60; Glucose 160 mg/dL (65-110); Magnesium 1.8 mg/dL (1.6-2.3); Potassium 3.5 mmol/L (3.4-5.0); Sodium 134 mmol/L (137-145)
[2021-07-11 05:40] LABS: Band Neutrophils Percent 14 % (0-6); Lymphocytes Absolute Manual 0.63 K/mm3 (1.1-4.5); Monocytes Absolute Manual 0.95 K/mm3 (0.1-0.90); Monocytes Percent Manual 6 % (3-9); Neutrophils Absolute Manual 14.31 K/mm3 (1.7-7.2); Neutrophils Percent Manual 76 % (46-73); Platelet Estimate Adequate (Adequate); Total Cells Counted 100
[2021-07-11] MEDS: methylPREDNISolone SOD SUCC 125 MG VIAL 40 MG IV PUSH (05:53)
[2021-07-11 06:05] LABS: Thyroid Stimulating Hormone Reflex 0.353 uIU/mL (0.465-4.68)
[2021-07-11 06:48] LABS: Free T4 Free Thyroxine Reflex 1.89 ng/dL (0.78-2.19)
[2021-07-11 08:09] LABS: Total Triiodothyronine (T3) 0.49 NG/ML (0.97-1.69)
[2021-07-11] MEDS: guaiFENesin 12 HR 600 MG TABCR PO ×2 (08:33→21:04)
[2021-07-11] MEDS: PANTOPRAZOLE SODIUM IV 40 MG VIAL IV PUSH (08:33)
--- NOTE | 2021-07-11 09:45 | PCPTNOTE ---
Initial evaluation attempted, pt getting echo at 0945, will continue to follow.
--- NOTE | 2021-07-11 10:30 | PM.CNPUL ---
Assessment and Plan Assessment and plan (1) Pneumonia: Qualifiers: Laterality: unspecified laterality Lung location: unspecified part of lung Pneumonia type: due to unspecified organism Qualified Code(s): J18.9 - Pneumonia, unspecified organism Code(s): J18.9 - Pneumonia, unspecified organism Status: Acute Assessment and Plan: a 65-year-old female with morbid obesity, seronegative rheumatoid arthritis chronically on the immunosuppressant medication leflunomide for arthritis presented with 1 day history of shortness of breath and left-sided pleuritic chest pain. Diagnostic studies suggest left lower lobe pneumonia. The patient has had hypoxemia for which she has been on high-flow nasal cannula. Given her morbid obesity and evidence of basal atelectasis on recent chest CT, hypoxemia is also related to lung atelectasis. The acute onset of the illness with dark sputum expectoration today suggests probable pneumococcal pneumonia. Given the immunocompromised status of the patient, Zosyn and vancomycin is an appropriate regimen. I would add Zithromax 500 mg IV for atypical coverage, pending diagnostic studies for pneumococcal pneumonia/other bacterial infection. Also I would discontinue IV steroids and continue with nebulized short-acting bronchodilators. The patient was started on BiPAP support primarily to improve hypoxemia through EPAP/better aeration of lung bases. Patient needs to be started DVT prophylaxis using Lovenox b.i.d. if there is no contraindication. (2) Hypoxia: Code(s): R09.02 - Hypoxemia Status: Acute (3) Morbid obesity: Code(s): E66.01 - Morbid (severe) obesity due to excess calories Status: Acute (4) Opioid dependence on agonist therapy: Code(s): F11.20 - Opioid dependence, uncomplicated Status: Chronic (5) Seronegative rheumatoid arthritis: Code(s): M06.00 - Rheumatoid arthritis without rheumatoid factor, unspecified site Status: Chronic History of Present Illness History of Present Illness Consult date: 07/12/21 Chief complaint: Pneumonia Narrative: This 65-year-old female presented with 1 day history of left sided pleuritic chest pain lung congestion and shortness of breath. The patient has a history of hypertension, opioid dependence, morbid obesity and history of rheumatoid arthritis for which she has been on medications including leflunomide. The patient has not been on steroids or has not received other immunosuppressant agents for her rheumatoid arthritis. Patient was in her usual state of health until approximately 1 day prior to admission when she started having a chest congestion and also left-sided chest pain that was worse with inspiration. She started having shortness of breath and also a mild cough and diaphoresis. She had no chills hemoptysis chest pain or palpitations. The patient was evaluated in the emergency room with chest CT as well as evaluated for tachycardia. Chest CT showed no evidence of pulmonary embolism. There was consolidation throughout the majority of the left lower lobe without associated volume loss and with groundglass opacities at the periphery of the consolidation most likely related to pneumonia. Indeterminate 11 mm infrahilar nodule in the right lower lobe. Consolidation groundglass opacities in the right middle lobe but with associated volume loss and favor atelectasis over pneumonia. patient has been on broad spectrum antibiotics with Zosyn and vancomycin, nebulized short-acting bronchodilator treatment and and IV steroids. She has been on high-flow nasal cannula for hypoxemia. Overnight the patient started coughing up small amount of dark looking phlegm. She has had no hemoptysis. Patient never had history of asthma COPD. She is a smoker. She has morbid obesity but no history of sleep disordered breathing. Review of Systems Review of Systems: Patient reports weight gain of approximately
--- NOTE | 2021-07-11 11:05 | PM.IMPN ---
Progress Note: A&P Assessment and Plan (1) Polymyalgia rheumatica: Code(s): M35.3 - Polymyalgia rheumatica Status: Acute Assessment and Plan: Hold immunosuppressive drugs (2) Opioid dependence on agonist therapy: Code(s): F11.20 - Opioid dependence, uncomplicated Status: Chronic Assessment and Plan: Resumed patient's Suboxone Patient takes this medication for rheumatoid arthritis, patient reports that she became addicted to narcotics due to her chronic knee pain and was transition to this medication. She is attempting to wean herself from this medication with her physician (3) Chronic diastolic HF (heart failure), NYHA class 2: Code(s): I50.32 - Chronic diastolic (congestive) heart failure Status: Chronic Assessment and Plan: Monitor vital signs, I&Os, BUN/creatinine, daily weights, neuro status and patient is a fall risk Monitor serum electrolytes, Keep serum Potassium>4 and serum Magnesium>2 and CBC Obtain an Echocardiogram Cardiology was consulted due to the patient's EKG upon arrival. However they do not believe the patient is experiencing a STEMI. (4) Cigarette nicotine dependence without complication: Code(s): F17.210 - Nicotine dependence, cigarettes, uncomplicated Status: Acute Assessment and Plan: Smoking cessation counseling given for 3 minutes, will add nicotine patch daily (5) Community acquired pneumonia: Code(s): J18.9 - Pneumonia, unspecified organism Status: Acute Assessment and Plan: Monitor vital signs, I&Os, neuro status and patient is a fall risk Follow WBC, serum electrolytes, temperature curves and cultures Send sputum cultures Oxygen via NC; wean as tolerated. Keep SpO2 greater than 88% Avoid Gentle IV fluid resuscitation due to the patient's history of CHF IV Vancomycin, consult pharmacy to dose, send Vancomycin trough levels before 4th dose, and Zosyn 3.375mg Q 6 hours DuoNeb q6H and Albuterol q2H PRN P.r.n. Tylenol, Zofran, and melatonin (6) Sepsis: Code(s): A41.9 - Sepsis, unspecified organism Status: Acute Assessment and Plan: Monitor I&Os, vital signs, neuro status and patient is a fall risk Monitor serum electrolytes, CBC, WBC, temperature curve and follow cultures IV Vancomycin, consult pharmacy to dose, send Vancomycin trough levels before 4th dose, and Zosyn 3.375mg Q 6 hours Add azithromycin Consulted Pulmonary, appreciate assistance and recommendations Patient was placed on BiPAP 10/14 with 60% FiO2, able to eat with meals Obtain pneumococcal and Legionella urine antigen Obtain influenza a and B nasal PCR Notified road freight conductor of patient's declining respiratory status P.r.n. Tylenol, Zofran, and melatonin (7) Hypokalemia: Code(s): E87.6 - Hypokalemia Status: Acute Assessment and Plan: Monitor serum electrolytes, replete as necessary (8) Class 3 severe obesity with serious comorbidity and body mass index (BMI) of 50.0 to 59.9 in adult: Code(s): E66.01 - Morbid (severe) obesity due to excess calories; Z68.43 - Body mass index [BMI] 50.0-59.9, adult Status: Acute Assessment and Plan: Dietary education provided Subjective Date/time seen: 07/11/21 11:05 Patient is alert and oriented this morning. She was sitting up in her chair this morning. She did not appear to be in acute respiratory distress she denied feeling additional short of breath although she was placed on a heated high-flow during the night of 40 L satting SpO2 92%. Consulted Pulmonary this morning. He did evaluate the patient suggested BiPAP 14/10,. Steroids, add Zithromax and appears to have pneumococcal pneumonia. Pending pneumococcal and Legionella urine antigen. The road freight conductor was also notified of the patient's declining condition and the need for increased oxygen demand. Review of Systems Review of Systems: All systems reviewed & are unremarkable except as noted in H
[2021-07-11 11:46] LABS: Glucose Point of Care 149 mg/dl (65-105)
[2021-07-11] MEDS: hydroCHLOROthiazide 12.5 MG CAPSULE PO (12:15)
[2021-07-11] MEDS: VALSARTAN 160 MG TABLET 320 MG PO (12:15)
[2021-07-11] MEDS: MONTELUKAST SODIUM 10 MG TABLET PO (12:15)
[2021-07-11] MEDS: FUROSEMIDE 40 MG TABLET PO (12:15)
[2021-07-11 12:31] LABS: Alveolar/Arterial O2 Gradient 281.1 mmHg; Base Excess ABG 2.3 mEq/l (+/-2.0); Fractional Inspired Oxygen 60 %; Oxygen Content ABG 17.6 %vol (16.0-22.0); Oxygen Saturation ABG 97.1 % (95.0-100.0); Oxyhemoglobin 95.3 % THb (90.0-100.0); PCO2 ABG 47.5 mmHg (35.0-45.0); PO2 ABG 94.5 mmHg (80.0-100.0); PO2 FiO2 Ratio Arterial Blood 1.58 %; Total Hemoglobin 13.1 g/dL (12.0-18.0); pH ABG 7.388 (7.350-7.450)
[2021-07-11 12:33] LABS: Device NON-INVASIVE VENT; Modified Allen's Test Pass; Site Drawn RIGHT RADIAL
[2021-07-11 12:34] LABS: Non-Invasive Expiratory Pressure 10 CMH2O; Non-Invasive Inspiratory Pressure 14 CMH2O; Non-Invasive Vent Rate 14 /MIN
[2021-07-11] MEDS: GABAPENTIN 300 MG CAPSULE PO ×2 (13:54→21:04)
--- NOTE | 2021-07-11 13:54 | PCCCNOTE ---
On 07/11/21, the student, [Jennifer Vincent], provided care and completed [facility] documentation on this patient. I have reviewed the student's documentation and agree with the findings.
--- NOTE | 2021-07-11 16:19 | ECG_ITS ---
Measurements Intervals [place] Rate: 122 P: DE: 0 QRS: 89 QRSD: 162 T: 3 QT: 366 QTc: 522 Interpretive Statements ATRIAL FIBRILLATION WITH RAPID VENTRICULAR RESPONSE RIGHT BUNDLE BRANCH BLOCK BASELINE WANDER- I, II, AVR, AVL ABNORMAL ECG Electronically Signed On 07-11-2021 20:39:39 CDT by Agustin Patrick D.O.
[2021-07-11] MEDS: POTASSIUM CHLORIDE 20 MEQ TABLET.ER 40 MEQ PO (17:31)
[2021-07-11 17:35] LABS: Glucose Point of Care 158 mg/dl (65-105)
[2021-07-11 18:28] LABS: Influenza Control Positive
[2021-07-11] MEDS: MELATONIN 5 MG TABLET PO (21:04)
[2021-07-11] MEDS: ENOXAPARIN 40 MG/0.4 ML SYRINGE SUB-Q (21:06)
[2021-07-11] MEDS: ENOXAPARIN 100 MG/ML SYRINGE SUB-Q (21:08)
[2021-07-11 23:46] LABS: Glucose Point of Care 161 mg/dl (65-105)
[2021-07-12] VITALS (33 sets, daily range): BP systolic 92–116; BP diastolic 55–75; PULSE 80–114; RESP 12–24; TEMP 36.4–36.7; O2SAT 92–100
[2021-07-12] MEDS: IPRATROPIUM BR 0.02% INH SOLN 0.5 MG/2.5 ML VIAL INHALATION ×4 (02:13→20:37)
[2021-07-12 02:59] LABS: Hematocrit 38.5 % (37.0-47.0); Hemoglobin 12.1 g/dL (12.0-15.0); Mean Corpuscular HGB Conc 31.4 g/dl (32-36); Mean Corpuscular Hemoglobin 30.7 pg (26-34); Mean Corpuscular Volume 97.7 fl (80-100); Platelet Count Result 165 k/mm3 (150-375); Red Blood Count 3.94 M/mm3 (4.2-5.4); Red Cell Distribution Width 13.9 % (11.5-14.5); White Blood Count 13.8 K/mm3 (4.5-10.0)
[2021-07-12 03:09] LABS: Alanine Aminotransferase 18 U/L (6-35); Alkaline Phosphatase 38 U/L (38-126); Anion Gap 3 mmol/L (8-16); Aspartate Amino Transferase 18 U/L (14-36); Bilirubin,Total 0.3 mg/dL (0.2-1.3); Blood Urea Nitrogen 25 mg/dL (7-17); Calcium 7.6 mg/dL (8.4-10.2); Carbon Dioxide 28 mmol/L (22-30); Chloride 104 mmol/L (98-107); Estimated CRCL calculation 61 ml/min; Estimated Glomerular Filt Rate 45; Glucose 109 mg/dL (65-110); Potassium 3.8 mmol/L (3.4-5.0); Sodium 135 mmol/L (137-145)
[2021-07-12 03:14] LABS: Band Neutrophils Percent 14 % (0-6); Lymphocytes Percent Manual 8 % (18-44); Monocytes Absolute Manual 0.41 K/mm3 (0.1-0.90); Monocytes Percent Manual 3 % (3-9); Neutrophils Absolute Manual 12.28 K/mm3 (1.7-7.2); Neutrophils Percent Manual 75 % (46-73); Platelet Estimate Adequate (Adequate); Total Cells Counted 100
[2021-07-12] MEDS: SODIUM CHLORIDE 0.9% IV 1,000 ML 125 ML IV CONT (04:29)
[2021-07-12 05:15] LABS: Alveolar/Arterial O2 Gradient 122.4 mmHg; Base Excess ABG 0.9 mEq/l (+/-2.0); Carboxyhemoglobin 1.1 % THb (0-2.0); Fractional Inspired Oxygen 35 %; HCO3 ABG 26.8 mEq/l (22.0-26.0); Methemoglobin ABG 0.3 %THb (0-1.5); Oxygen Content ABG 20.8 %vol (16.0-22.0); Oxygen Saturation ABG 94.1 % (95.0-100.0); Oxyhemoglobin 92.6 % THb (90.0-100.0); PO2 ABG 72.5 mmHg (80.0-100.0); PO2 FiO2 Ratio Arterial Blood 2.07 %; pH ABG 7.374 (7.350-7.450)
[2021-07-12 05:23] LABS: Device NON-INVASIVE VENT; Modified Allen's Test Pass; Site Drawn RIGHT RADIAL
[2021-07-12 05:24] LABS: Non-Invasive Expiratory Pressure 10 CMH2O; Non-Invasive Inspiratory Pressure 14 CMH2O; Non-Invasive Vent Rate 10 /MIN
[2021-07-12] MEDS: LEVOTHYROXINE SODIUM 150 MCG TABLET PO (05:36)
--- NOTE | 2021-07-12 05:40 | PCRCNOTE ---
Pt was weaned on BiPAP down to 35% overnight. Repeat ABG done on BiPAP was good. Pt requested to come off BiPAP and wanted to go to bathroom instead of using bedside commode. Because the [employer] is not transportable and the pt's O2 demand had decreased so significantly overnight, pt was place on 10L HFNC and titrated down from there. Pt currently on 6L HFNC with a sat of 95%. Pt appears in no distress and reports no SOB.
[2021-07-12] MEDS: ALBUTEROL SULFATE NEB 2.5 MG/3 ML INH 5 MG INHALATION ×2 (08:20→20:37)
--- NOTE | 2021-07-12 08:47 | PM.IMPN ---
Progress Note: A&P Assessment and Plan (1) Polymyalgia rheumatica: Code(s): M35.3 - Polymyalgia rheumatica Status: Acute Assessment and Plan: Hold immunosuppressive drugs (2) Opioid dependence on agonist therapy: Code(s): F11.20 - Opioid dependence, uncomplicated Status: Chronic Assessment and Plan: Resumed patient's Suboxone Patient takes this medication for rheumatoid arthritis, patient reports that she became addicted to narcotics due to her chronic knee pain and was transition to this medication. She is attempting to wean herself from this medication with her physician (3) Chronic diastolic HF (heart failure), NYHA class 2: Code(s): I50.32 - Chronic diastolic (congestive) heart failure Status: Chronic Assessment and Plan: Monitor vital signs, I&Os, BUN/creatinine, daily weights, neuro status and patient is a fall risk Monitor serum electrolytes, Keep serum Potassium>4 and serum Magnesium>2 and CBC Obtain an Echocardiogram Cardiology was consulted due to the patient's EKG upon arrival. However they do not believe the patient is experiencing a STEMI. (4) Cigarette nicotine dependence without complication: Code(s): F17.210 - Nicotine dependence, cigarettes, uncomplicated Status: Acute Assessment and Plan: Smoking cessation counseling given for 3 minutes, will add nicotine patch daily (5) Community acquired pneumonia: Code(s): J18.9 - Pneumonia, unspecified organism Status: Acute Assessment and Plan: Monitor vital signs, I&Os, neuro status and patient is a fall risk Follow WBC, serum electrolytes, temperature curves and cultures Pending sputum cultures Oxygen via NC; wean as tolerated. Keep SpO2 greater than 88% Avoid Gentle IV fluid resuscitation due to the patient's history of CHF IV Vancomycin, consult pharmacy to dose, send Vancomycin trough levels before 4th dose, and Zosyn 3.375mg Q 6 hours, continue azithromycin DuoNeb q6H and Albuterol q2H PRN P.r.n. Tylenol, Zofran, and melatonin (6) Sepsis: Code(s): A41.9 - Sepsis, unspecified organism Status: Acute Assessment and Plan: Monitor I&Os, vital signs, neuro status and patient is a fall risk Monitor serum electrolytes, CBC, WBC, temperature curve and follow cultures IV Vancomycin, consult pharmacy to dose, send Vancomycin trough levels before 4th dose, and Zosyn 3.375mg Q 6 hours Continue azithromycin plan to deescalate antibiotics pending cultures Consulted Pulmonary, appreciate assistance and recommendations Patient was placed on BiPAP 12/05 with 60% FiO2, able to eat with meals, patient doing well on 07/30 L of oxygen per nasal cannula. Pending pneumococcal and Legionella urine antigen Negative influenza a and B nasal PCR Notified qa automation engineer of patient's declining respiratory status P.r.n. Tylenol, Zofran, and melatonin (7) Hypokalemia: Code(s): E87.6 - Hypokalemia Status: Acute Assessment and Plan: Monitor serum electrolytes, replete as necessary (8) Class 3 severe obesity with serious comorbidity and body mass index (BMI) of 50.0 to 59.9 in adult: Code(s): E66.01 - Morbid (severe) obesity due to excess calories; Z68.43 - Body mass index [BMI] 50.0-59.9, adult Status: Acute Assessment and Plan: Dietary education provided (9) New onset a-fib: Code(s): I48.91 - Unspecified atrial fibrillation Status: Acute Assessment and Plan: Monitor vital signs, I&Os, neuro status, patient is a fall risk and patient is a bleeding risk Monitor PTT, Serum electrolytes, and cbc Keep serum potassium >4 and keep magnesium >2 Monitor anticoagulation therapy, therapeutic Lovenox Consult Cardiology for further management, appreciate assistance and recommendations Echocardiogram performed on 07/11/2021 which revealed an LVEF of 60-65% with grade 1 diastolic dysfunction as well as mild pulmonary hypertension. Dilated infer
--- NOTE | 2021-07-12 09:51 | PM.CNCAR ---
Assessment and Plan Additional Plan This is a 65-year-old lady with a history of chronic right bundle branch block who enters the hospital with left lower lobe pneumonia which is being treated with antibiotics. It is noted that she is in atrial fibrillation. Her presenting EKG was more consistent with flutter but now she is in jose atrial fibrillation. He has no symptoms or awareness to indicate when this began. As I mentioned in my note the last EKG that I find in the record was back in 2019 at which time she was in sinus rhythm. At this point the only recommendation has to be oral anticoagulation. I am going to stop the Lovenox and start her on Xarelto. I also will start some oral diltiazem to provide a bit slower heart rate although she does not need much of this. Following discharge from her pneumonia why will follow her in the office and determine whether we will attempt restoring sinus rhythm or not Gonzalez Baer MD [facility] History of Present Illness History of Present Illness Consult date/time: 07/12/21 09:51 Consult reason: atrial fibrillation Reason For Visit: Pneumonia Narrative: This is a 65-year-old woman I am seeing at the request of the hospitalist this morning because of atrial fibrillation. She is unknown to me prior to this encounter. The patient has been seen in her chart has been reviewed. She came into this hospital yesterday with complaints of coughing and chest pain of a pleuritic nature. She has been found to have a left lower lobe consolidative pneumonia and is admitted for antibiotic treatment and management. Since she has been in the hospital it is noted that on her electrocardiogram she is in atrial flutter initially and now in atrial fibrillation with which she appears to be asymptomatic. She is not aware of her heart rate being rapid or irregular she denies any sense of palpitations or other cardiac symptomatology. The last ECG I find in the chart that demonstrates sinus rhythm was back in 2019. She also has a chronic right bundle branch block. An echocardiogram was requested yesterday that was interpreted by Dr. Patrick as demonstrating normal left ventricular systolic function and I do not believe any significant valvular dysfunction was identified. The patient was seen in IMU this morning she says she is feeling better with respect to her coughing and chest discomfort. She is sitting up in a bedside chair sleeping when I came in the room to see her upon awakening she says she has been feeling okay this morning and has no other complaints. Currently on telemetry she has atrial fibrillation her heart rate varies between 90 and 120. She has been anticoagulated by the hospitalist with therapeutic dosage of Lovenox. She does have chronic hypertension hypothyroidism and morbid obesity currently BMI is 54.1 . There are some notes in the chart all indicating that she has sleep apnea but the patient indicates this is not the case Review of Systems Constitutional: Constitutional: Reports no additional constitutional complaints Eyes: Eyes: Reports no additional eye complaints ENT: Reports system reviewed and no additional complaints, except as documented Cardiovascular: Cardiovascular: Reports no additional cardiovascular complaints Respiratory: Respiratory: Reports cough Comments: Cough productive of thick sputum Gastrointestinal: Gastrointestinal: Reports no additional gastrointestinal complaints Musculoskeletal: Musculoskeletal: Reports back pain Comments: Patient has chronic low back pain Neurologic: Reports system reviewed and no additional complaints, except as documented Endocrine: Endocrine: Reports no additional endocrine complaints Hematologic/Lymphatic: Hematologic/Lymphatic: Reports no additional hematologic/lymphatic complaints Allergic/Immunologic: Allergic/Immunologic: Reports no additional allergic/immunologic complaints [facility] Past Medical History Medical History (Reviewed 07/10/21 @ 14
[2021-07-12] MEDS: PANTOPRAZOLE SODIUM IV 40 MG VIAL IV PUSH (10:20)
[2021-07-12] MEDS: MONTELUKAST SODIUM 10 MG TABLET PO (10:21)
[2021-07-12] MEDS: VALSARTAN 160 MG TABLET 320 MG PO (10:21)
[2021-07-12] MEDS: hydroCHLOROthiazide 12.5 MG CAPSULE PO (10:21)
[2021-07-12] MEDS: guaiFENesin 12 HR 600 MG TABCR PO ×2 (10:21→20:59)
[2021-07-12] MEDS: FUROSEMIDE 40 MG TABLET PO (10:22)
[2021-07-12] MEDS: POTASSIUM CHLORIDE 20 MEQ TABLET.ER 40 MEQ PO (10:24)
--- NOTE | 2021-07-12 11:11 | PM.PNPUL ---
Progress Note: A&P Additional Plan (1) Pneumonia: Qualifiers: Laterality: unspecified laterality Lung location: unspecified part of lung Pneumonia type: due to unspecified organism Qualified Code(s): J18.9 - Pneumonia, unspecified organism Code(s): J18.9 - Pneumonia, unspecified organism Status: Acute Assessment and Plan: a 65-year-old female with morbid obesity, seronegative rheumatoid arthritis chronically on the immunosuppressant medication leflunomide for arthritis presented with 1 day history of shortness of breath and left-sided pleuritic chest pain. Diagnostic studies suggest left lower lobe pneumonia. The patient has had hypoxemia for which she has been on high-flow nasal cannula. Given her morbid obesity and evidence of basal atelectasis on recent chest CT, hypoxemia is also related to lung atelectasis. The acute onset of the illness with dark sputum expectoration today suggests probable pneumococcal pneumonia. Respiratory status improved since admission. Currently on just nasal cannula 6 liters/minute, having less shortness of breath, less cough with clear sputum production. No fever or chills. Has been on treatment for new onset atrial fibrillation following evaluation by cardiology services. Today's chest x-ray showed a new infiltrates right upper lobe, question related fluid overload. Plan: Will continue with BiPAP support at night. In view of increasing creatinine I have discontinued vancomycin. Continue with Zosyn and Zithromax for now. Sputum culture pending. MRSA screen ordered. On direct anticoagulant now for atrial fibrillation. Need a 2 view chest x-ray in a.m., to exclude left pleural effusion. She will need repeat chest CT in approximately 6 months to confirm resolution of bilateral lung infiltrates. she is over 7 L fluid positive since admission. She may benefit from Lasix IV. Case was discussed with the hospitalist. (2) Hypoxia: Code(s): R09.02 - Hypoxemia Status: Acute (3) Morbid obesity: Code(s): E66.01 - Morbid (severe) obesity due to excess calories Status: Acute (4) Opioid dependence on agonist therapy: Code(s): F11.20 - Opioid dependence, uncomplicated Status: Chronic (5) Seronegative rheumatoid arthritis: Code(s): M06.00 - Rheumatoid arthritis without rheumatoid factor, unspecified site Status: Chronic Subjective Date/time seen: 07/12/21 11:11 patient stated her breathing is better today. She has less shortness of breath. Less coughing, sputum no longer dark. Afebrile. Used BiPAP support last night. She has no left pleuritic chest pain. Was evaluated by Cardiology for new onset A fib. currently sitting in chair on just nasal cannula at 6 liters/minute oxygen flow. Review of Systems Review of Systems: All systems reviewed & are unremarkable except as noted in HPI and below Exam Narrative: GENERAL APPEARANCE: Well developed, well nourished, alert and cooperative, Morbidly obese who appears to be mild respiratory distress while seated in chair on high-flow nasal cannula. SKIN: Inspection of the skin reveals no rashes, ulcerations or petechiae. HEENT: Sclerae anicteric and conjunctivae pink and moist. Extraocular movements were intact and pupils were equal, round. NECK: Supple. There was no thyroid enlargement, and no tenderness, or masses were felt. CHEST: Normal AP diameter and normal contour without any kyphoscoliosis. LUNGS: Auscultation of the lungs revealed crackles at bases posteriorly, more on left CARDIAC: There was a regular rate and rhythm without any murmurs. ABDOMEN: Soft and nontender with normal bowel sounds. There was no organomegaly. LYMPH NODES: No lymphadenopathy was appreciated in the neck. EXTREMITIES: No cyanosis, clubbing or edema. NEUROLOGIC: Alert and oriented x 3. Normal affect. Objective Data Vital Signs Vital Signs: Vital Signs - 24 hr 07/11/21 12:00 07/11/21
[2021-07-12 11:45] LABS: Glucose Point of Care 171 mg/dl (65-105)
[2021-07-12] MEDS: ACETAMINOPHEN 325 MG TABLET 650 MG PO ×2 (12:23→21:51)
[2021-07-12] MEDS: GABAPENTIN 300 MG CAPSULE PO ×2 (13:32→21:01)
--- NOTE | 2021-07-12 13:57 | PHAR ---
HOME MED: BUPRENORPHINE-NALOXONE 8-2 MG; PLACE 1 TABLET UNDER TONGUE TWICE DAILY. VERIFIED BY PHARMACY.
[2021-07-12] MEDS: RIVAROXABAN 20 MG TABLET PO (17:23)
[2021-07-12 17:48] LABS: Glucose Point of Care 112 mg/dl (65-105)
[2021-07-12 20:03] LABS: Glucose Point of Care 101 mg/dl (65-105)
[2021-07-12] MEDS: MELATONIN 5 MG TABLET PO (21:00)
[2021-07-13] VITALS (20 sets, daily range): BP systolic 96–147; BP diastolic 71–82; PULSE 92–131; RESP 14–22; TEMP 36.2–37; O2SAT 89–98
[2021-07-13] MEDS: IPRATROPIUM BR 0.02% INH SOLN 0.5 MG/2.5 ML VIAL INHALATION ×3 (02:14→20:57)
[2021-07-13 04:50] LABS: Basophils Percent Auto 0.4 % (0.2-1.2); Eosinophils Percent Auto 0.3 % (0-4.4); Hematocrit 41.5 % (37.0-47.0); Immature Granulocyte Absolute 0.05 K/mm3 (0.00-0.031); Immature Granulocyte Percent A 0.5 % (0-0.5); Lymphocytes Absolute Auto 1.09 K/mm3 (0.9-3.2); Mean Corpuscular HGB Conc 31.3 g/dl (32-36); Mean Corpuscular Hemoglobin 30.4 pg (26-34); Mean Platelet Volume 10.4 fl (7.4-10.4); Monocytes Absolute Auto 0.8 K/mm3 (0.1-0.6); Monocytes Percent Auto 6.9 % (2.6-8.5); Neutrophils Percent Auto 81.9 % (45.5-73.1); Platelet Count Result 199 k/mm3 (150-375); Red Blood Count 4.28 M/mm3 (4.2-5.4); Red Cell Distribution Width 14.2 % (11.5-14.5); White Blood Count 10.9 K/mm3 (4.5-10.0)
[2021-07-13 05:09] LABS: Alanine Aminotransferase 24 U/L (6-35); Albumin Level 3.4 g/dL (3.5-5.1); Alkaline Phosphatase 51 U/L (38-126); Anion Gap 5 mmol/L (8-16); Aspartate Amino Transferase 24 U/L (14-36); Bilirubin,Total 0.5 mg/dL (0.2-1.3); Blood Urea Nitrogen 41 mg/dL (7-17); Calcium 8.4 mg/dL (8.4-10.2); Carbon Dioxide 26 mmol/L (22-30); Chloride 105 mmol/L (98-107); Estimated CRCL calculation 49 ml/min; Estimated Glomerular Filt Rate 35; Glucose 103 mg/dL (65-110); Potassium 3.6 mmol/L (3.4-5.0); Sodium 136 mmol/L (137-145)
[2021-07-13] MEDS: guaiFENesin 12 HR 600 MG TABCR PO ×2 (08:09→20:25)
[2021-07-13] MEDS: FUROSEMIDE 40 MG TABLET PO (08:09)
[2021-07-13] MEDS: hydroCHLOROthiazide 12.5 MG CAPSULE PO (08:09)
[2021-07-13] MEDS: POTASSIUM CHLORIDE 20 MEQ TABLET.ER 40 MEQ PO (08:09)
[2021-07-13] MEDS: MONTELUKAST SODIUM 10 MG TABLET PO (08:09)
[2021-07-13] MEDS: PANTOPRAZOLE SODIUM IV 40 MG VIAL IV PUSH (08:10)
[2021-07-13] MEDS: FUROSEMIDE INJ 40 MG/4 ML VIAL IV PUSH (08:10)
[2021-07-13] MEDS: VALSARTAN 160 MG TABLET 320 MG PO (08:10)
[2021-07-13] MEDS: ACETAMINOPHEN 325 MG TABLET 650 MG PO (08:16)
[2021-07-13 08:18] LABS: Glucose Point of Care 105 mg/dl (65-105)
--- NOTE | 2021-07-13 08:49 | PM.PNCARD ---
Progress Note: A&P Additional Plan 65-year-old lady with atrial fibrillation of unknown duration. She is asymptomatic of her arrhythmia. Recommend anticoagulation and rate control. When she does go home I will have follow-up with her in the office to discuss the option of cardioversion once she has been anticoagulated for at least 4-6 weeks. Gonzalez Baer MD [facility] Subjective Date/time seen: Date of service: 07/13/21 08:49 Interval history: Follow-up visit in this 65-year-old lady with: Atrial fibrillation of unknown chronicity patient hospitalized with left lower lobe pneumonia also has morbid obesity. She is now anticoagulated with Xarelto. She has a more rapid ventricular response this morning. Recommended and ordered some oral diltiazem to be started to provide better rate control. She is expecting and hopeful of being discharged tomorrow according to the primary team. Exam Const: General: comfortable and no acute distress Other: Morbidly obese 65-year-old lady sleeping in the chair when I came in the room to see her HENMT: Mouth: Yes moist mucous membranes Eyes: Sclera: sclerae normal Neck: Neck: supple Other: No evident carotid bruits impossible to comment on venous distention given body habitus Resp: Effort & Inspection: normal respiratory effort Other: Patient has expiratory rhonchi centrally Cardio: Rhythm: abnormal rhythm irregularly irregular Other: PMI is not palpable there is no audible murmur GI: Auscultation: normal bowel sounds Skin: General skin exam: normal color Neuro: Cognition (Neuro): normal cognition Extrem: Other: Lower extremities morbidly obese otherwise benign Objective Data Vital Signs Vital Signs: Vital Signs - 24 hr 07/12/21 10:00 07/12/21 12:00 07/12/21 14:00 Temperature 36.7 C Pulse Rate 106 H 93 94 Respiratory Rate 24 H Blood Pressure 104/59 L Pulse Oximetry 92 07/12/21 14:05 07/12/21 14:15 07/12/21 16:00 Temperature 36.4 C Pulse Rate 105 H 97 90 Respiratory Rate 20 20 24 H Blood Pressure 104/67 Pulse Oximetry 96 07/12/21 18:00 07/12/21 19:20 07/12/21 20:00 Temperature 36.5 C Pulse Rate 95 89 93 Respiratory Rate 20 24 H Blood Pressure 116/75 Pulse Oximetry 95 95 07/12/21 20:35 07/12/21 20:36 07/12/21 20:48 Temperature Pulse Rate 98 103 H Respiratory Rate 20 19 Blood Pressure Pulse Oximetry 94 07/12/21 22:00 07/12/21 23:09 07/12/21 23:25 Temperature 36.6 C Pulse Rate 109 H 100 106 H Respiratory Rate 20 23 H Blood Pressure 92/55 L Pulse Oximetry 97 94 07/13/21 00:00 07/13/21 02:00 07/13/21 02:15 Temperature Pulse Rate 101 H 106 H 121 H Respiratory Rate 22 H 19 Blood Pressure Pulse Oximetry 97 98 07/13/21 02:17 07/13/21 02:34 07/13/21 04:00 Temperature 36.3 C L Pulse Rate 131 H 123 H 130 H Respiratory Rate 19 19 22 H Blood Pressure 96/74 L Pulse Oximetry 96 07/13/21 06:00 07/13/21 07:46 07/13/21 07:47 Temperature Pulse Rate 115 H 120 H Respiratory Rate 19 Blood Pressure Pulse Oximetry 95 Intake/Output Intake/Output: Intake & Output 07/10/21 07/11/21 07/12/21 07/13/21 23:59 23:59 23:59 23:59 Intake Total 3240 5112 2890 450 Output Total 2450 601 Balance 3240 2662 2890 -151 Meds/Results Medications: Active Medications Generic Name Dose Route Start Last Admin Trade Name Freq PRN Reason Stop Dose Admin Acetaminophen 650 mg 07/10/21 14:27 07/13/21 08:16 Acetaminophen 325 Mg Tablet PO 650 mg Q6H PRN Administration Mild Pain (1-3) or Fever Albuterol 5 mg 07/10/21 14:27 07/12/21 20:37 Albuterol Sulfate Neb 2.5 Mg/3 Ml Inh INHALATION 5 mg Q4HRT PRN Administration Shortness Of Breath Or Wheezing Diltiazem HCl 180 mg 07/13/21 09:00 Diltiazem Hcl Cd 180 Mg Cap.Er.24h PO QAM RAH Furosemide 40 mg 07/11/21 09:00 07/13/21 08:09 Furosemide 40 Mg Tablet PO 40 mg DAILY RAH Administratio
[2021-07-13] MEDS: dilTIAZem HCL CD 180 MG CAP.ER.24H PO (09:23)
--- NOTE | 2021-07-13 10:38 | PM.IMPN ---
Progress Note: A&P Assessment and Plan (1) Polymyalgia rheumatica: Code(s): M35.3 - Polymyalgia rheumatica Status: Acute Assessment and Plan: Hold immunosuppressive drugs (2) Opioid dependence on agonist therapy: Code(s): F11.20 - Opioid dependence, uncomplicated Status: Chronic Assessment and Plan: Resumed patient's Suboxone Patient takes this medication for rheumatoid arthritis, patient reports that she became addicted to narcotics due to her chronic knee pain and was transition to this medication. She is attempting to wean herself from this medication with her physician (3) Chronic diastolic HF (heart failure), NYHA class 2: Code(s): I50.32 - Chronic diastolic (congestive) heart failure Status: Chronic Assessment and Plan: Monitor vital signs, I&Os, BUN/creatinine, daily weights, neuro status and patient is a fall risk Monitor serum electrolytes, Keep serum Potassium>4 and serum Magnesium>2 and CBC Obtain an Echocardiogram Cardiology was consulted due to the patient's EKG upon arrival. However they do not believe the patient is experiencing a STEMI. (4) Cigarette nicotine dependence without complication: Code(s): F17.210 - Nicotine dependence, cigarettes, uncomplicated Status: Acute Assessment and Plan: Smoking cessation counseling given for 3 minutes, will add nicotine patch daily (5) Community acquired pneumonia: Code(s): J18.9 - Pneumonia, unspecified organism Status: Acute Assessment and Plan: Monitor vital signs, I&Os, neuro status and patient is a fall risk Follow WBC, serum electrolytes, temperature curves and cultures Pending sputum cultures Oxygen via NC; wean as tolerated. Keep SpO2 greater than 88% Avoid Gentle IV fluid resuscitation due to the patient's history of CHF IV Vancomycin, consult pharmacy to dose, send Vancomycin trough levels before 4th dose, and Zosyn 3.375mg Q 6 hours, continue azithromycin DuoNeb q6H and Albuterol q2H PRN P.r.n. Tylenol, Zofran, and melatonin (6) Sepsis: Code(s): A41.9 - Sepsis, unspecified organism Status: Acute Assessment and Plan: Monitor I&Os, vital signs, neuro status and patient is a fall risk Monitor serum electrolytes, CBC, WBC, temperature curve and follow cultures Zosyn 3.375mg Q 6 hours and azithromycin plan to deescalate antibiotics pending cultures Consulted Pulmonary, appreciate assistance and recommendations Patient was placed on BiPAP 12/05 with 60% FiO2, able to eat with meals, patient doing well on 07/30 L of oxygen per nasal cannula.--patient doing significantly better on 07/13/2021. On 4 L of oxygen per nasal cannula. BiPAP during the night. Pending pneumococcal and Legionella urine antigen Negative influenza a and B nasal PCR Notified studio grip of patient's declining respiratory status P.r.n. Tylenol, Zofran, and melatonin (7) Hypokalemia: Code(s): E87.6 - Hypokalemia Status: Acute Assessment and Plan: Monitor serum electrolytes, replete as necessary (8) Class 3 severe obesity with serious comorbidity and body mass index (BMI) of 50.0 to 59.9 in adult: Code(s): E66.01 - Morbid (severe) obesity due to excess calories; Z68.43 - Body mass index [BMI] 50.0-59.9, adult Status: Acute Assessment and Plan: Dietary education provided (9) New onset a-fib: Code(s): I48.91 - Unspecified atrial fibrillation Status: Acute Assessment and Plan: Monitor vital signs, I&Os, neuro status, patient is a fall risk and patient is a bleeding risk Monitor PTT, Serum electrolytes, and cbc Keep serum potassium >4 and keep magnesium >2 Monitor anticoagulation therapy, therapeutic Lovenox Consult Cardiology for further management, appreciate assistance and recommendations Echocardiogram performed on 07/11/2021 which revealed an LVEF of 60-65% with grade 1 diastolic dysfunction as well as mild pulmonary hypertension.
--- NOTE | 2021-07-13 11:18 | PM.PNPUL ---
Progress Note: A&P Additional Plan (1) Pneumonia: Qualifiers: Laterality: unspecified laterality Lung location: unspecified part of lung Pneumonia type: due to unspecified organism Qualified Code(s): J18.9 - Pneumonia, unspecified organism Code(s): J18.9 - Pneumonia, unspecified organism Status: Acute Assessment and Plan: a 65-year-old female with morbid obesity, seronegative rheumatoid arthritis chronically on the immunosuppressant medication leflunomide presented with 1 day history of shortness of breath and left-sided pleuritic chest pain. related to left lower lobe pneumonia. during this hospitalization the patient developed new onset atrial fibrillation and has been evaluated by Cardiology Services. Overall respiratory status has improved. She no longer has cough shortness of breath or wheezing. She uses BiPAP support at night and receive a supplemental oxygen via nasal cannula during the day. Leukocytosis trending down. Today's chest x-ray partial clearing of the left lower lobe infiltrate no presence of effusions and bilateral upper lobe alveolar infiltrates probably related to fluid overload. Overall patient is fluid positive. Plan: Will continue with BiPAP support at night. Continue Zosyn and Zithromax for now. MRSA screen ordered. On direct anticoagulant for atrial fibrillation. She will need repeat chest CT in approximately 6 weeks to confirm resolution of bilateral lung infiltrates. Creatinine remains elevated. she is still fluid positive since admission. She may benefit from Lasix IV. (2) Hypoxia: Code(s): R09.02 - Hypoxemia Status: Acute (3) Morbid obesity: Code(s): E66.01 - Morbid (severe) obesity due to excess calories Status: Acute (4) Opioid dependence on agonist therapy: Code(s): F11.20 - Opioid dependence, uncomplicated Status: Chronic (5) Seronegative rheumatoid arthritis: Code(s): M06.00 - Rheumatoid arthritis without rheumatoid factor, unspecified site Status: Chronic Subjective Date/time seen: 07/13/21 11:18 Patient stated she is doing better. She has no cough fever chills. She used BiPAP support last night, slept in chair. Has been on treatment for new onset atrial fibrillation. currently on oxygen by nasal cannula. Review of Systems Review of Systems: All systems reviewed & are unremarkable except as noted in HPI and below Exam Narrative: GENERAL APPEARANCE: Well developed, well nourished, alert and cooperative, Morbidly obese who appears to be mild respiratory distress while seated in chair on nasal cannula. SKIN: Inspection of the skin reveals no rashes, ulcerations or petechiae. HEENT: Sclerae anicteric and conjunctivae pink and moist. Extraocular movements were intact and pupils were equal, round. NECK: Supple. There was no thyroid enlargement, and no tenderness, or masses were felt. CHEST: Normal AP diameter and normal contour without any kyphoscoliosis. LUNGS: Auscultation of the lungs revealed crackles at bases posteriorly, more on left CARDIAC: There was a regular rate and rhythm without any murmurs. ABDOMEN: Soft and nontender with normal bowel sounds. There was no organomegaly. LYMPH NODES: No lymphadenopathy was appreciated in the neck. EXTREMITIES: No cyanosis, clubbing or edema. NEUROLOGIC: Alert and oriented x 3. Normal affect. Objective Data Vital Signs Vital Signs: Vital Signs - 24 hr 07/12/21 12:00 07/12/21 14:00 07/12/21 14:05 Temperature 36.7 C Pulse Rate 93 94 105 H Respiratory Rate 24 H 20 Blood Pressure 104/59 L Pulse Oximetry 92 07/12/21 14:15 07/12/21 16:00 07/12/21 18:00 Temperature 36.4 C Pulse Rate 97 90 95 Respiratory Rate 20 24 H Blood Pressure 104/67 Pulse Oximetry 96 07/12/21 19:20 07/12/21 20:00 07/12/21 20:35 Temperature 36.5 C Pulse Rate 89 93 98 Respiratory Rate 20 24 H 20 Blood Pressure 116/75 Pulse Oximetry 95
[2021-07-13 11:29] LABS: Glucose Point of Care 123 mg/dl (65-105)
--- NOTE | 2021-07-13 14:08 | PCRCNOTE ---
PT refused 2 oclock treatment. Pt stated she did not think she needed one at the time. Pts family is here and wanted to spend time with them instead of doing the treatment. Pt stated if she needed one she would ask for her PRN. RT strongly encouraged pt to do treatment and they refused
--- NOTE | 2021-07-13 16:29 | PC.NURSE ---
This patient, Shara Kerr, was received from [[id number] ] on 07/13/21 at 1625. Patient/family oriented to unit policies and routines
--- NOTE | 2021-07-13 16:40 | PC.NURSE ---
This patient, Shara Kerr, was transferred to [[id number] ] on 07/13/21 at 1625. Personal belongings sent with patient. Report given to [TEQUILA Cruz @ [phone] ]. Appropriate documentation sent with patient.
[2021-07-13 16:55] LABS: Glucose Point of Care 128 mg/dl (65-105)
[2021-07-13] MEDS: RIVAROXABAN 20 MG TABLET PO (17:05)
[2021-07-13] MEDS: GABAPENTIN 300 MG CAPSULE PO (20:25)
[2021-07-13] MEDS: MELATONIN 5 MG TABLET PO (20:25)
--- NOTE | 2021-07-13 22:21 | PCRCNOTE ---
RT spoke with pt. about sleep study test ordered. Pt. states I do not have sleep apnea and will not do the test. Rt informed the pt. the reasoning for the test. Sleep study will not be performed tonight.
[2021-07-14] VITALS (16 sets, daily range): BP systolic 139–141; BP diastolic 68–86; PULSE 77–108; RESP 18–21; TEMP 36.1–36.4; O2SAT 87–100
[2021-07-14] MEDS: IPRATROPIUM BR 0.02% INH SOLN 0.5 MG/2.5 ML VIAL INHALATION ×2 (02:08→08:41)
[2021-07-14] MEDS: LEVOTHYROXINE SODIUM 150 MCG TABLET PO (05:26)
[2021-07-14 07:16] LABS: Basophils Percent Auto 0.4 % (0.2-1.2); Eosinophils Absolute Auto 0.1 K/mm3 (0-0.3); Eosinophils Percent Auto 0.8 % (0-4.4); Hematocrit 39.4 % (37.0-47.0); Hemoglobin 12.5 g/dL (12.0-15.0); Immature Granulocyte Absolute 0.08 K/mm3 (0.00-0.031); Immature Granulocyte Percent A 1.1 % (0-0.5); Lymphocytes Absolute Auto 0.86 K/mm3 (0.9-3.2); Lymphocytes Percent Auto 11.5 % (18.3-44.2); Mean Corpuscular HGB Conc 31.7 g/dl (32-36); Mean Corpuscular Hemoglobin 30.6 pg (26-34); Mean Corpuscular Volume 96.3 fl (80-100); Mean Platelet Volume 10.6 fl (7.4-10.4); Monocytes Absolute Auto 0.9 K/mm3 (0.1-0.6); Monocytes Percent Auto 11.8 % (2.6-8.5); Neutrophils Absolute Auto 5.6 K/mm3 (1.3-6.7); Neutrophils Percent Auto 74.4 % (45.5-73.1); Platelet Count Result 203 k/mm3 (150-375); Red Blood Count 4.09 M/mm3 (4.2-5.4); Red Cell Distribution Width 14.5 % (11.5-14.5); White Blood Count 7.5 K/mm3 (4.5-10.0)
[2021-07-14 07:25] LABS: Alanine Aminotransferase 23 U/L (6-35); Albumin Level 3.4 g/dL (3.5-5.1); Alkaline Phosphatase 49 U/L (38-126); Anion Gap 6 mmol/L (8-16); Aspartate Amino Transferase 21 U/L (14-36); Bilirubin,Total 0.6 mg/dL (0.2-1.3); Blood Urea Nitrogen 34 mg/dL (7-17); Calcium 8.4 mg/dL (8.4-10.2); Carbon Dioxide 28 mmol/L (22-30); Chloride 102 mmol/L (98-107); Estimated CRCL calculation 56 ml/min; Estimated Glomerular Filt Rate 41; Glucose 115 mg/dL (65-110); Potassium 3.6 mmol/L (3.4-5.0); Sodium 136 mmol/L (137-145)
[2021-07-14 07:36] LABS: Glucose Point of Care 114 mg/dl (65-105)
--- NOTE | 2021-07-14 08:05 | ECG_ITS ---
Measurements Intervals [place] Rate: 86 P: 50 KS: 136 QRS: 72 QRSD: 162 T: 3 QT: 394 QTc: 473 Interpretive Statements SINUS RHYTHM RIGHT BUNDLE BRANCH BLOCK ABNORMAL ECG Electronically Signed On 07-14-2021 9:41:19 CDT by Agustin Patrick D.O.
[2021-07-14] MEDS: VALSARTAN 160 MG TABLET 320 MG PO (08:11)
[2021-07-14] MEDS: hydroCHLOROthiazide 12.5 MG CAPSULE PO (08:11)
[2021-07-14] MEDS: dilTIAZem HCL CD 180 MG CAP.ER.24H PO (08:11)
[2021-07-14] MEDS: MONTELUKAST SODIUM 10 MG TABLET PO (08:11)
[2021-07-14] MEDS: guaiFENesin 12 HR 600 MG TABCR PO (08:12)
[2021-07-14] MEDS: POTASSIUM CHLORIDE 20 MEQ TABLET.ER 40 MEQ PO (08:12)
[2021-07-14] MEDS: PANTOPRAZOLE SODIUM IV 40 MG VIAL IV PUSH (08:12)
[2021-07-14] MEDS: FUROSEMIDE 40 MG TABLET PO (08:12)
--- NOTE | 2021-07-14 09:51 | PM.PNCARD ---
Progress Note: A&P Assessment and Plan (1) New onset a-fib: Code(s): I48.91 - Unspecified atrial fibrillation Status: Acute Assessment and Plan: Atrial fibrillation of unknown duration. She has been placed on diltiazem and did convert to sinus rhythm. Continue diltiazem 180mg daily and systemic a/c with Xarelto. OK for discharge today from a cardiac standpoint. Will arrange follow up in our office Subjective Date/time seen: 07/14/21 09:51 Cardiology follow up for atrial fibrillation Feeling better today. Back in sinus rhythm this morning. Review of Systems Constitutional: Constitutional: Reports no additional constitutional complaints Eyes: Eyes: Reports no additional eye complaints ENT: Reports system reviewed and no additional complaints, except as documented Cardiovascular: Cardiovascular: Reports no additional cardiovascular complaints Respiratory: Respiratory: Reports cough Gastrointestinal: Gastrointestinal: Reports no additional gastrointestinal complaints Musculoskeletal: Musculoskeletal: Reports back pain Neurologic: Reports system reviewed and no additional complaints, except as documented Endocrine: Endocrine: Reports no additional endocrine complaints Hematologic/Lymphatic: Hematologic/Lymphatic: Reports no additional hematologic/lymphatic complaints Allergic/Immunologic: Allergic/Immunologic: Reports no additional allergic/immunologic complaints Exam Const: General: comfortable and no acute distress Other: Morbidly obese 65-year-old lady sitting up in the chair HENMT: Mouth: Yes moist mucous membranes Eyes: Sclera: sclerae normal Neck: Neck: supple Resp: Effort & Inspection: normal respiratory effort Cardio: Rate: regular rate Rhythm: regular rhythm Heart sounds: no murmurs GI: Auscultation: normal bowel sounds Skin: General skin exam: normal color Neuro: Cognition (Neuro): normal cognition Objective Data Vital Signs Vital Signs: Vital Signs - 24 hr 07/13/21 10:00 07/13/21 12:00 07/13/21 12:20 Temperature Pulse Rate 104 H 110 H Respiratory Rate Blood Pressure Pulse Oximetry 96 07/13/21 16:00 07/13/21 20:00 07/13/21 20:59 Temperature 37.0 C 36.8 C Pulse Rate 112 H 101 H 96 Respiratory Rate 20 14 18 Blood Pressure 106/71 147/82 H Pulse Oximetry 93 97 07/13/21 21:00 07/13/21 21:05 07/13/21 23:24 Temperature Pulse Rate 102 H Respiratory Rate 18 16 Blood Pressure Pulse Oximetry 95 96 07/14/21 00:00 07/14/21 02:10 07/14/21 02:14 Temperature Pulse Rate 77 92 Respiratory Rate 19 21 H Blood Pressure Pulse Oximetry 94 07/14/21 02:17 07/14/21 04:00 07/14/21 05:40 Temperature 36.4 C L Pulse Rate 96 79 88 Respiratory Rate 19 18 Blood Pressure 141/86 H Pulse Oximetry 100 07/14/21 08:00 07/14/21 08:42 07/14/21 08:43 Temperature Pulse Rate 80 100 Respiratory Rate 19 Blood Pressure Pulse Oximetry 94 07/14/21 08:51 07/14/21 08:59 Temperature Pulse Rate 98 Respiratory Rate 19 Blood Pressure Pulse Oximetry 94 Intake/Output Intake/Output: Intake & Output 07/11/21 07/12/21 07/13/21 07/14/21 23:59 23:59 23:59 23:59 Intake Total 5112 2890 1720 690 Output Total 2450 601 600 Balance 2662 2890 1119 90 Meds/Results Medications: Active Medications Generic Name Dose Route Start Last Admin Trade Name Freq PRN Reason Stop Dose Admin Acetaminophen 650 mg 07/10/21 14:27 07/13/21 08:16 Acetaminophen 325 Mg Tablet PO 650 mg Q6H PRN Administration Mild Pain (1-3) or Fever Albuterol 5 mg 07/10/21 14:27 07/12/21 20:37 Albuterol Sulfate Neb 2.5 Mg/3 Ml Inh INHALATION 5 mg Q4HRT PRN Administration Shortness Of Breath Or Wheezing Diltiazem HCl 180 mg 07/13/21 09:00 07/14/21 08:11 Diltiazem Hcl Cd 180 Mg Cap.Er.24h PO 180 mg QAM RAH Administration Furosemide 40 mg 07/11/21 09:00 07/14/21 08:12 Furosemide 4
[2021-07-14] MEDS: NYSTATIN 100,000 UNITS/ML SUSP 5 ML ORAL.SUSP PO (11:27)
[2021-07-14 11:31] LABS: Glucose Point of Care 144 mg/dl (65-105)
[2021-07-14] MEDS: LOPERAMIDE HCL 2 MG CAPSULE PO ×2 (11:52→14:37)
--- NOTE | 2021-07-14 12:49 | PM.DS ---
DS: Admitting Diagnosis Discharge Date 07/14/2021 Admitting Diagnosis Community-acquired pneumonia Acute hypoxic respiratory failure or LASHELL DS: Discharge Diagnosis Discharge Diagnosis (1) Polymyalgia rheumatica: Code(s): M35.3 - Polymyalgia rheumatica Status: Acute Assessment and Plan: Hold immunosuppressive drugs (2) Opioid dependence on agonist therapy: Code(s): F11.20 - Opioid dependence, uncomplicated Status: Chronic Assessment and Plan: Resumed patient's Suboxone Patient takes this medication for rheumatoid arthritis, patient reports that she became addicted to narcotics due to her chronic knee pain and was transition to this medication. She is attempting to wean herself from this medication with her physician (3) Chronic diastolic HF (heart failure), NYHA class 2: Code(s): I50.32 - Chronic diastolic (congestive) heart failure Status: Chronic Assessment and Plan: Monitor vital signs, I&Os, BUN/creatinine, daily weights, neuro status and patient is a fall risk Monitor serum electrolytes, Keep serum Potassium>4 and serum Magnesium>2 and CBC Obtain an Echocardiogram Cardiology was consulted due to the patient's EKG upon arrival. However they do not believe the patient is experiencing a STEMI. (4) Cigarette nicotine dependence without complication: Code(s): F17.210 - Nicotine dependence, cigarettes, uncomplicated Status: Acute Assessment and Plan: Smoking cessation counseling given for 3 minutes, will add nicotine patch daily (5) Community acquired pneumonia: Code(s): J18.9 - Pneumonia, unspecified organism Status: Acute Assessment and Plan: Monitor vital signs, I&Os, neuro status and patient is a fall risk Follow WBC, serum electrolytes, temperature curves and cultures Pending sputum cultures Oxygen via NC; wean as tolerated. Keep SpO2 greater than 88% Avoid Gentle IV fluid resuscitation due to the patient's history of CHF IV Vancomycin, consult pharmacy to dose, send Vancomycin trough levels before 4th dose, and Zosyn 3.375mg Q 6 hours, continue azithromycin DuoNeb q6H and Albuterol q2H PRN P.r.n. Tylenol, Zofran, and melatonin (6) Sepsis: Code(s): A41.9 - Sepsis, unspecified organism Status: Acute Assessment and Plan: Monitor I&Os, vital signs, neuro status and patient is a fall risk Monitor serum electrolytes, CBC, WBC, temperature curve and follow cultures Zosyn 3.375mg Q 6 hours and azithromycin plan to deescalate antibiotics pending cultures Consulted Pulmonary, appreciate assistance and recommendations Patient was placed on BiPAP 12/05 with 60% FiO2, able to eat with meals, patient doing well on 07/30 L of oxygen per nasal cannula.--patient doing significantly better on 07/13/2021. On 4 L of oxygen per nasal cannula. BiPAP during the night. Pending pneumococcal and Legionella urine antigen Negative influenza a and B nasal PCR Notified money room teller of patient's declining respiratory status P.r.n. Tylenol, Zofran, and melatonin (7) Hypokalemia: Code(s): E87.6 - Hypokalemia Status: Acute Assessment and Plan: Monitor serum electrolytes, replete as necessary (8) Class 3 severe obesity with serious comorbidity and body mass index (BMI) of 50.0 to 59.9 in adult: Code(s): E66.01 - Morbid (severe) obesity due to excess calories; Z68.43 - Body mass index [BMI] 50.0-59.9, adult Status: Acute Assessment and Plan: Dietary education provided (9) New onset a-fib: Code(s): I48.91 - Unspecified atrial fibrillation Status: Acute Assessment and Plan: Monitor vital signs, I&Os, neuro status, patient is a fall risk and patient is a bleeding risk Monitor PTT, Serum electrolytes, and cbc Keep serum potassium >4 and keep magnesium >2 Monitor anticoagulation therapy, therapeutic Lovenox Consult Cardiology for further management, appreciate assistance and recomm
--- NOTE | 2021-07-14 12:54 | PM.PNPUL ---
Progress Note: A&P Assessment and Plan (1) Pneumonia: Qualifiers: Laterality: unspecified laterality Lung location: unspecified part of lung Pneumonia type: due to unspecified organism Qualified Code(s): J18.9 - Pneumonia, unspecified organism Code(s): J18.9 - Pneumonia, unspecified organism Status: Acute Assessment and Plan: Patient had a fever, leukocytosis, left chest pain, purulence sputum and a CT scan of the chest that demonstrated a left lower lobe dense consolidation. Patient was started on azithromycin 07/10 and Zosyn 07/10 and currently is day 5 of both of these antibiotics. Today her leukocytosis has resolved is a white blood cell count is 7.5, her chest x-ray is improved on 07/13 and currently she is on 1 L nasal cannula saturations 94%. Patient is awaiting a home O2 assessment. Of note the patient is morbidly obese with a BMI of 54.1 From a pulmonary perspective patient is ready for discharge on these pulmonary medicines: levofloxacin 750 mg p.o. q.day x5 days to finish a total of 10 days of antibiotics. Home oxygen per formal home O2 assessment. Patient will need CT scan in 6 weeks to document resolution of her left lower lobe consolidation. This can be performed by her primary physician and she can be referred to the outpatient Pulmonary Clinic in the future if needed. discussed with Tracey Burrell. Subjective Date/time seen: 07/14/21 12:54 Interval history: 07/14/2021: patient states she continues to improve and is now back at her baseline. Patient states that she has no cough. Her phlegm has cleared from dark to now yellow and she has no chest pain. Patient has been wearing BiPAP at night empirically but states that she does not wish to have an outpatient sleep study and would not wear a CPAP or BiPAP mask at home. Review of Systems Review of Systems: All systems reviewed & are unremarkable except as noted in HPI and below Eyes: Eyes: Reports no additional eye complaints ENT: Reports system reviewed and no additional complaints, except as documented Cardiovascular: Cardiovascular: Reports no additional cardiovascular complaints Respiratory: Respiratory: Reports no additional respiratory complaints Gastrointestinal: Gastrointestinal: Reports no additional gastrointestinal complaints Musculoskeletal: Musculoskeletal: Reports no additional musculoskeletal complaints Integumentary/Breasts: Skin/Breast: Reports system reviewed and no additional complaints, except as docu Neurologic: Reports system reviewed and no additional complaints, except as documented Psychiatric: Psychiatric: Reports no additional psychiatric complaints Endocrine: Endocrine: Reports no additional endocrine complaints Exam Const: General: cooperative and healthy appearing Orientation/consciousness: oriented to person, oriented to place and oriented to time HENMT: Head: normal to inspection Ears: hearing grossly normal bilaterally Mouth: Yes Normal oral and palatal mucosa present Eyes: General: appearance normal, both eyes and all related structures Neck: Neck: normal visual inspection Chest: Chest palpation & inspection: normal inspection of the chest Resp: Effort & Inspection: normal respiratory effort and able to speak in complete sentences Auscultation: no crackles, no rales, no rhonchi, no wheezes and lung sounds not diminished Cardio: Jugular venous distension: no JVD GI: Inspection: normal to inspection Skin: General skin exam: normal color Neuro: General: oriented to person, oriented to place and oriented to time Extrem: General: normal to inspection and no pedal edema Psych: Appearance: grossly normal Objective Data Vital Signs Vital Signs: Vital Signs - 24 hr 07/13/21 16:00 07/13/21 20:00 07/13/21 20:59 Temperature 37.0 C 36.8 C Pulse Rate 112 H 101 H 96 Respiratory Rate 20 14 18 Blood Pressure 106/71 147/82 H Pulse Oximetry 93 97 07/13/21 2
--- NOTE | 2021-07-14 14:02 | PCRCNOTE ---
HOMEO2 EVAL DONE, PT DESAT TO 87% WITH ACTIVITY. 1 L WITH ACTIVITY IS SUGGESTED, ROOM AIR AT REST. PT REQUESTED TO NOT HAVE HOME O2, STATED IF SHE DID HAVE IT SHE WOULDN'T WEAR IT, ALSO CONCERNED ABOUT COST. PT VERY BORDERLINE TO NEED FOR O2.
--- NOTE | 2021-07-15 09:10 | PC.NURSE ---
Patient called to clarify medication orders after discharge. Vale MANDEL clarified orders.
[2021-07-31 15:22] LABS: Pneumococcal Antigen Urine Not Detected
[2021-07-31 15:24] LABS: Legionella pneumophila Ag Ur Not Detected
--- NOTE | 2021-08-01 07:06 | PC.NURSE ---
Pneumococcal Legionella results are negative.
== END 2021-07-14 15:01 | disposition home or self-care (01) | DRG 871 ==
LOC: ANHED 14:22 → ANHIMU 16:44 → ANH3MEDSUR 07-14 07:59 → ANHIMU 07-16 11:48
PROVIDERS: Emergency Medicine; Internal Medicine Pulmonary Disease; Admitting Provider Internal Medicine; Emergency Provider Emergency Medicine; PCP Family Medicine; Visit Provider Nurse Practitioner Family
DX: A41.9 Sepsis, unspecified organism (principal); J18.9 Pneumonia, unspecified organism; I50.32 Chronic diastolic (congestive) heart failure; F11.20 Opioid dependence, uncomplicated; Z68.43 Body mass index [BMI] 50.0-59.9, adult; R09.02 Hypoxemia; M35.3 Polymyalgia rheumatica; Z20.822 Contact with and (suspected) exposure to COVID-19; E87.6 Hypokalemia; E66.01 Morbid (severe) obesity due to excess calories; M48.061 Spinal stenosis, lumbar region without neurogenic claudication; I48.91 Unspecified atrial fibrillation; M06.00 Rheumatoid arthritis without rheumatoid factor, unspecified site; F17.210 Nicotine dependence, cigarettes, uncomplicated; M81.0 Age-related osteoporosis without current pathological fracture; Z96.641 Presence of right artificial hip joint; Z91.81 History of falling; Z85.828 Personal history of other malignant neoplasm of skin
CPT/HCPCS: 36415; 36600; 71045; 71275; 80053; 80061; 80202; 82375; 82805; 82948; 83036; 83050; 83605; 83735; 84439; 84443; 84480; 84484; 85025; 85610; 85730; 86140; 86850; 86900; 86901; 87040; 87070; 87081; 87205; 87449; 87486; 87804; 87899; 93005; 93306; 94002; 94003; 94618; 94640; 94668; 96365; 96366; 96367; 96368; 96375; 96376; 97110; 97161; 97165; 99285; A9270; C9113; C9803; G0378; J0456; J0696; J1650; J1940; J2543; J2930; J3370; J7030; Q9967; U0003; U0005

== ENCOUNTER 2021-08-26 11:48 | Outpatient (CLI) | payer OTHER, SELFPAY ==
--- NOTE | ~2021-08-26 | CT_ITS ---
EXAMINATION: CT chest high resolution wo or DATE: 08/26/2021 12:08 INDICATION: Shortness of breath TECHNIQUE: Computed tomography (CT) of the chest was performed without intravenous contrast. The dose -length product (DLP) was 903.40 mGy-cm. Automated exposure control and iterative reconstruction tech [employer] were employed. COMPARISON: 07/10/2021 FINDINGS: Airspace opacities of the left lower lobe persist but have significantly decreased. There i s a small left pleural effusion with some possible loculation. No pneumothorax is identified. Right m iddle lobe atelectasis has resolved. No pathologically enlarged thoracic lymph nodes are identified. The heart size is normal. There is moderate thoracic spondylosis. 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 IMPRESSION: 1. Persistent but decreased airspace opacities of the left lower lobe, consistent with resolving pneu monia. 2. Small left pleural effusion with probable loculated component. Reviewed, dictated and finalized at location B. IMPRESSION: 1. Persistent but decreased airspace opacities of the left lower lobe, consiste nt with resolving pneumonia. 2. Small left pleural effusion with probable loculated component.
== END 2021-08-26 11:49 | disposition home or self-care (01) ==
PROVIDERS: PCP Family Medicine; Visit Provider Family Medicine
DX: J18.9 Pneumonia, unspecified organism (principal); J90 Pleural effusion, not elsewhere classified
CPT/HCPCS: 71250